=== PATIENT | male | born 1955 | race Caucasian/White ===

== ENCOUNTER 2018-02-03 21:49 | Emergency (ER) | payer BC ==
[~2018-02-03] VITALS: Ht 175.3 cm; Wt 86.2 kg
[2018-02-03 22:42] LABS: BASOPHILS % (AUTO) 0.7 % (0-1); EOSINOPHILS % (AUTO) 0.7 % (0-6); HEMATOCRIT 45.7 % (42.0-52.0); HEMOGLOBIN 15.9 g/dl (14.0-17.9); LYMPHOCYTES # (AUTO) 2.8 X10'3 (1.1-4.8); LYMPHOCYTES % (AUTO) 43.9 % (21-51); MEAN CORPUSCULAR HEMOGLOBIN 35.1 PG (27.0-31.0); MEAN CORPUSCULAR HGB CONC 34.7 % (33.0-36.5); MEAN CORPUSCULAR VOLUME 100.9 FL (78-98); MEAN PLATELET VOLUME 8.2 FL (7.4-10.4); MONOCYTES # (AUTO) 0.5 X10'3 (0-0.9); MONOCYTES % (AUTO) 8.6 % (2-12); NEUTROPHILS # (AUTO) 2.9 X10'3 (1.8-7.7); NEUTROPHILS % (AUTO) 46.1 % (42-75); PLATELET COUNT 137 X10'3 (140-440); RED BLOOD COUNT 4.53 X10'6 (4.70-6.10); RED CELL DISTRIBUTION WIDTH 14.7 % (11.5-14.5); WHITE BLOOD COUNT 6.3 X10'3 (4.5-11.0)
[2018-02-03 22:55] LABS: ALANINE AMINOTRANSFERASE 66 U/L (12-78); ALBUMIN 3.8 G/DL (3.4-5.0); ALBUMIN/GLOBULIN RATIO 1.1 (1.1-1.5); ALKALINE PHOSPHATASE 47 IU/L (46-116); ANION GAP 15 (8-16); ASPARTATE AMINO TRANSFERASE 86 U/L (10-37); BILIRUBIN,TOTAL 0.6 MG/DL (0.1-1.0); BLOOD UREA NITROGEN 16 MG/DL (7-18); BUN/CREATININE RATIO 13.8 (5.4-32.0); CALCIUM 9.3 MG/DL (8.5-10.1); CHLORIDE 105 MMOL/L (99-107); CREATININE 1.16 MG/DL (0.60-1.10); GLUCOSE 133 MG/DL (70-104); MAGNESIUM 1.9 MG/DL (1.5-2.4); POTASSIUM 3.3 MMOL/L (3.5-5.1); SODIUM 146 MMOL/L (135-145); TOTAL CARBON DIOXIDE 26.2 MMOL/L (24-32); TOTAL PROTEIN 7.2 G/DL (6.4-8.2); eGFR 64 ML/MIN
[2018-02-03 22:58] LABS: ETHANOL 0.381 GM/DL (0.0-0.010)
[2018-02-03 23:33] VITALS: BP 118/69
== END 2018-02-03 23:35 | disposition home or self-care (01) ==
LOC: ER 21:50
DX: S09.90XA Unspecified injury of head, initial encounter (principal); F10.129 Alcohol abuse with intoxication, unspecified; R42 Dizziness and giddiness; Z86.718 Personal history of other venous thrombosis and embolism; W10.9XXA Fall (on) (from) unspecified stairs and steps, initial encounter; Y93.89 Activity, other specified; Y92.89 Other specified places as the place of occurrence of the external cause; Y99.8 Other external cause status
CPT/HCPCS: 36415; 70450; 80053; 80320; 83735; 85025; 93005; 99285; J7030

== ENCOUNTER 2021-08-09 08:57 | Outpatient (CLI) | payer MEDICARE, OTHER | END 2021-08-09 23:59 | disposition home or self-care (01) | LOC: RAD 08:57 | PROVIDERS: ATTEND Psychiatry & Neurology Neurology | DX: R25.1 Tremor, unspecified (principal); G62.1 Alcoholic polyneuropathy | CPT/HCPCS: 95816 ==

== ENCOUNTER 2021-09-17 16:48 | Emergency (ER) | payer MEDICARE, OTHER ==
[~2021-09-17] VITALS: Ht 175.3 cm; Wt 90.9 kg
[2021-09-17 20:29] VITALS: BP 154/90
[2021-09-17] MEDS ORDERED: traMADol 50MG tablet PO ONE (20:40)
[2021-09-17] MEDS ORDERED: cyclobenzaprine 10mg tablet PO ONE (20:40)
[2021-09-17] MEDS ORDERED: HYDROcodone/acetaminophen 5mg/325mg tablet PO ONE (20:40)
[2021-09-17] MEDS ORDERED: TRAM50TA2 PO (20:43)
[2021-09-17] MEDS ORDERED: CYCL-1 PO (20:43)
[2021-09-18] MEDS ORDERED: TRAM50TA2 PO (13:26)
[2021-09-18] MEDS ORDERED: CYCL-394 PO (13:26)
== END 2021-09-17 20:54 | disposition home or self-care (01) ==
LOC: ER 16:51
DX: S20.211A Contusion of right front wall of thorax, initial encounter (principal); F17.200 Nicotine dependence, unspecified, uncomplicated; Z86.718 Personal history of other venous thrombosis and embolism; Z72.89 Other problems related to lifestyle; W22.8XXA Striking against or struck by other objects, initial encounter; Y93.61 Activity, american tackle football; Y92.89 Other specified places as the place of occurrence of the external cause; Y99.8 Other external cause status
CPT/HCPCS: 71101; 99284

== ENCOUNTER 2023-03-10 20:49 | Emergency (ER) | payer OTHER ==
[~2023-03-10] VITALS: Ht 175.3 cm; Wt 79.5 kg
[~2023-03-10 20:49] MED LIST: GABA-530 PO; LORA-269 PO; ONDA4TAB12 PO
[2023-03-10 20:55] VITALS: BP 126/76
== END 2023-03-10 23:44 | disposition left against medical advice (07) ==
LOC: ER 20:50
DX: F10.129 Alcohol abuse with intoxication, unspecified (principal); Y90.9 Presence of alcohol in blood, level not specified
CPT/HCPCS: 99281

== ENCOUNTER 2023-07-15 20:18 | Emergency (ER) | payer OTHER ==
[~2023-07-15] VITALS: Ht 177.8 cm; Wt 81.8 kg
[~2023-07-15 20:18] MED LIST changes: +NAPR-56 PO; +POTA-207 PO
[2023-07-15 20:23] VITALS: BP 144/71; PULSE 71; RESP 20; TEMP 98.9; O2SAT 97
--- NOTE | 2023-07-15 22:08 | NUR ---
PT LEFT/ ELOPPED. PT WAS VERBALY AGRESSIVE WITH STAFF ABOUT MD TAKING SO LONG. PT EDUCATION GIVEN ON ER TIMES. NURSE WAS TOLD "FUCK YOU" AND LEFT. PT SEEN LEAVING THE ER
== END 2023-07-15 22:11 | disposition left against medical advice (07) ==
LOC: ER 20:18
DX: M54.9 Dorsalgia, unspecified (principal); Z53.21 Procedure and treatment not carried out due to patient leaving prior to being seen by health care provider
CPT/HCPCS: 99281

== ENCOUNTER 2023-07-18 17:01 | Emergency (ER) | payer OTHER ==
[~2023-07-18] VITALS: Ht 175.3 cm; Wt 81.8 kg
[2023-07-18 17:40] VITALS: BP 131/72; PULSE 70; TEMP 97.6; O2SAT 100
[2023-07-18] MEDS ORDERED: traMADol 50MG tablet PO ONE (19:45)
[2023-07-18] MEDS ORDERED: acetaminophen 325mg tablet PO ONE (19:45)
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
[2023-07-18 20:20] VITALS: RESP 17
[2023-07-18 21:03] LABS: ALBUMIN 3.5 G/DL (3.4-5.0); ANION GAP 8 (8-16); BLOOD UREA NITROGEN 18 MG/DL (7-18); BUN/CREATININE RATIO 14.5 (10.0-20.0); CALCIUM 9.6 MG/DL (8.5-10.1); CHLORIDE 108 MMOL/L (99-107); CREATININE 1.24 MG/DL (0.60-1.10); GLUCOSE 93 MG/DL (70-104); POTASSIUM 3.6 MMOL/L (3.5-5.1); SODIUM 141 MMOL/L (135-145); eCRCL 58 ML/MIN; eGFR 58 ML/MIN
[2023-07-18] MEDS ORDERED: DICL20GE TOP (21:08)
--- NOTE | 2023-07-18 21:09 | NUR ---
PT REQUESTING CAB TO [facility] [place]. [facility] CALLED, EST TIME OF ARRIVAL 5 MINUTES.
--- NOTE | 2023-07-18 21:42 | NUR ---
JUNIOR pierce reviewed by RN, approved by this RN
== END 2023-07-18 21:48 | disposition home or self-care (01) ==
LOC: ER 17:02
DX: F10.10 Alcohol abuse, uncomplicated (principal); F31.9 Bipolar disorder, unspecified; M25.511 Pain in right shoulder; Z79.899 Other long term (current) drug therapy; Y90.9 Presence of alcohol in blood, level not specified
CPT/HCPCS: 36415; 80048; 99283

== ENCOUNTER 2023-07-19 21:33 | Emergency (ER) | payer OTHER ==
[~2023-07-19] VITALS: Ht 175.3 cm; Wt 79.8 kg
[~2023-07-19 21:33] MED LIST changes: +DICL20GE TOP
[2023-07-19 23:47] VITALS: BP 124/70; PULSE 78; RESP 14; TEMP 98.8; O2SAT 98
[2023-07-20] MEDS ORDERED: ibuprofen tablet 400 MG TABLET PO ONE (01:40)
== END 2023-07-20 01:45 | disposition home or self-care (01) ==
LOC: ER 21:33
DX: M54.9 Dorsalgia, unspecified (principal); G89.29 Other chronic pain; Z72.89 Other problems related to lifestyle; Z56.0 Unemployment, unspecified; Z59.00 Homelessness unspecified; Z79.899 Other long term (current) drug therapy
CPT/HCPCS: 99284

== ENCOUNTER 2023-07-27 19:44 | Emergency (ER) | payer OTHER ==
[~2023-07-27] VITALS: Ht 175.3 cm; Wt 41.4 kg
[~2023-07-27 19:44] MED LIST changes: -POTA-207 PO
[2023-07-27 21:05] LABS: BASOPHILS # (AUTO) 0.2 X10'3 (0-0.2); BASOPHILS % (AUTO) 1.9 % (0-1); EOSINOPHILS # (AUTO) 0.3 X10'3 (0-0.9); EOSINOPHILS % (AUTO) 3.2 % (0-6); HEMATOCRIT 46.7 % (42.0-52.0); HEMOGLOBIN 15.7 g/dl (14.0-17.9); LYMPHOCYTES # (AUTO) 3.8 X10'3 (1.1-4.8); LYMPHOCYTES % (AUTO) 37.7 % (21-51); MEAN CORPUSCULAR HGB CONC 33.7 g/dL (33.0-36.5); MEAN CORPUSCULAR VOLUME 94.9 FL (78-98); MEAN PLATELET VOLUME 8.5 FL (7.4-10.4); MONOCYTES # (AUTO) 0.6 X10'3 (0-0.9); MONOCYTES % (AUTO) 6.2 % (2-12); NEUTROPHILS # (AUTO) 5.2 X10'3 (1.8-7.7); PLATELET COUNT 296 X10'3 (140-440); RED BLOOD COUNT 4.92 X10'6 (4.70-6.10); RED CELL DISTRIBUTION WIDTH 15.9 % (11.5-14.5); WHITE BLOOD COUNT 10.2 X10'3 (4.5-11.0)
[2023-07-27 21:14] LABS: ALANINE AMINOTRANSFERASE 24 U/L (12-78); ALBUMIN 3.4 G/DL (3.4-5.0); ALBUMIN/GLOBULIN RATIO 0.9 (1.1-1.5); ALKALINE PHOSPHATASE 116 IU/L (46-116); ANION GAP 10 (8-16); ASPARTATE AMINO TRANSFERASE 26 U/L (10-37); BILIRUBIN,TOTAL 0.7 MG/DL (0.1-1.0); BLOOD UREA NITROGEN 6 MG/DL (7-18); BUN/CREATININE RATIO 5.1 (10.0-20.0); CALCIUM 9.2 MG/DL (8.5-10.1); CHLORIDE 106 MMOL/L (99-107); CREATININE 1.18 MG/DL (0.60-1.10); GLUCOSE 90 MG/DL (70-104); LIPASE 32 U/L (16-77); MAGNESIUM 1.8 MG/DL (1.5-2.4); POTASSIUM 3.2 MMOL/L (3.5-5.1); SODIUM 143 MMOL/L (135-145); TOTAL CARBON DIOXIDE 26.6 MMOL/L (24-32); TOTAL PROTEIN 7.2 G/DL (6.4-8.2); eCRCL 36 ML/MIN; eGFR 62 ML/MIN
[2023-07-27 21:19] LABS: BILIRUBIN,URINE SMALL (Neg); CLARITY,URINE CLEAR (Clear); COLOR,URINE AMBER (Yellow); GLUCOSE, URINE NEGATIVE (Neg); KETONES,URINE TRACE mg/dl (Neg); LEUKOCYTE ESTERASE ,URINE NEGATIVE (Neg); NITRITES, URINE NEGATIVE (Neg); OCCULT BLOOD,URINE TRACE-INTACT (Neg); PH,URINE 5.5 (4.8-8.0); PROTEIN,URINE NEGATIVE (Neg); UROBILINOGEN,URINE 0.2 E.U/dL (0.2-1.0)
[2023-07-27 21:20] LABS: UA COLLECTION TYPE CLN CATCH MIDSTREAM
[2023-07-27 21:37] LABS: MUCUS STRANDS MANY /LPF (Neg); SQUAMOUS EPITHELIAL CELL,UR FEW /LPF (FEW)
[2023-07-27 21:38] LABS: BACTERIA,URINE NONE SEEN /HPF (Neg); RBC,URINE 0-2 /HPF (0-2); WBC,URINE 0-4 /HPF (0-4)
[2023-07-28 07:22] VITALS: TEMP 97
[2023-07-28] MEDS ORDERED: LORazepam 1 MG tablet PO ONE (10:15)
[2023-07-28 10:33] VITALS: BP 134/80; PULSE 64; RESP 18; O2SAT 98
[2023-07-29] MEDS ORDERED: ARIP20TA21 PO (16:24)
[2023-07-29] MEDS ORDERED: QUET50TA24 PO (16:24)
[2023-07-29] MEDS ORDERED: GABA-530 PO (16:26)
[2023-07-29] MEDS ORDERED: AMPH10TA2 PO (16:32)
== END 2023-07-28 10:34 | disposition home or self-care (01) ==
LOC: ER 19:45
DX: F10.239 Alcohol dependence with withdrawal, unspecified (principal); M54.59 Other low back pain; G89.29 Other chronic pain; Z59.00 Homelessness unspecified; Z56.0 Unemployment, unspecified; Y90.9 Presence of alcohol in blood, level not specified
CPT/HCPCS: 36415; 80053; 80320; 81001; 83690; 83735; 85025; 93005; 99284

== ENCOUNTER 2023-07-28 20:39 | Inpatient (IN) | payer OTHER ==
[~2023-07-28] VITALS: Ht 175.3 cm; Wt 93.1 kg
[2023-07-28 21:16] LABS: BILIRUBIN,URINE MODERATE (Neg); GLUCOSE, URINE NEGATIVE (Neg); KETONES,URINE TRACE mg/dl (Neg); LEUKOCYTE ESTERASE ,URINE NEGATIVE (Neg); NITRITES, URINE NEGATIVE (Neg); OCCULT BLOOD,URINE NEGATIVE (Neg); PROTEIN,URINE NEGATIVE (Neg)
[2023-07-28 21:22] LABS: CLARITY,URINE SLIGHTLY CLOUDY (Clear); COLOR,URINE DARK YELLOW (Yellow); UA COLLECTION TYPE CLN CATCH MIDSTREAM
[2023-07-28 21:24] LABS: BACTERIA,URINE NONE SEEN /HPF (Neg); RBC,URINE 0-2 /HPF (0-2); SQUAMOUS EPITHELIAL CELL,UR FEW /LPF (FEW)
[2023-07-28 21:25] LABS: MUCUS STRANDS FEW /LPF (Neg)
[2023-07-28 21:45] LABS: EOSINOPHILS # (AUTO) 0.3 X10'3 (0-0.9); MEAN PLATELET VOLUME 8.8 FL (7.4-10.4); WHITE BLOOD COUNT 10.2 X10'3 (4.5-11.0)
[2023-07-28 21:47] LABS: BASOPHILS # (AUTO) 0.1 X10'3 (0-0.2); BASOPHILS % (AUTO) 0.6 % (0-1); HEMATOCRIT 47.7 % (42.0-52.0); HEMOGLOBIN 15.9 g/dl (14.0-17.9); LYMPHOCYTES # (AUTO) 3.2 X10'3 (1.1-4.8); LYMPHOCYTES % (AUTO) 31.2 % (21-51); MEAN CORPUSCULAR HEMOGLOBIN 31.9 PG (27.0-31.0); MEAN CORPUSCULAR HGB CONC 33.4 g/dL (33.0-36.5); MEAN CORPUSCULAR VOLUME 95.4 FL (78-98); MONOCYTES # (AUTO) 0.9 X10'3 (0-0.9); MONOCYTES % (AUTO) 8.5 % (2-12); NEUTROPHILS # (AUTO) 5.8 X10'3 (1.8-7.7); NEUTROPHILS % (AUTO) 56.7 % (42-75); PLATELET COUNT 275 X10'3 (140-440); RED BLOOD COUNT 5.01 X10'6 (4.70-6.10); RED CELL DISTRIBUTION WIDTH 15.7 % (11.5-14.5)
[2023-07-28 21:48] LABS: URINE AMPHETAMINE SCREEN NEGATIVE (Neg); URINE BARBITUATE SCREEN NEGATIVE (Neg); URINE BENZODIAZEPINES SCREEN POSITIVE (Neg); URINE CANNABINOID SCREEN NEGATIVE (Neg); URINE COCAINE SCREEN NEGATIVE (Neg); URINE METHADONE SCREEN NEGATIVE (Neg); URINE OPIATE SCREEN NEGATIVE (Neg); URINE PHENCYCLIDINE SCREEN NEGATIVE (Neg)
[2023-07-28 21:53] LABS: ALANINE AMINOTRANSFERASE 26 U/L (12-78); ALBUMIN 3.3 G/DL (3.4-5.0); ALBUMIN/GLOBULIN RATIO 0.9 (1.1-1.5); ALKALINE PHOSPHATASE 119 IU/L (46-116); ANION GAP 9 (8-16); ASPARTATE AMINO TRANSFERASE 26 U/L (10-37); BILIRUBIN,TOTAL 0.8 MG/DL (0.1-1.0); BLOOD UREA NITROGEN 11 MG/DL (7-18); BUN/CREATININE RATIO 10.2 (10.0-20.0); CALCIUM 9.4 MG/DL (8.5-10.1); CHLORIDE 103 MMOL/L (99-107); CREATININE 1.08 MG/DL (0.60-1.10); GLUCOSE 101 MG/DL (70-104); POTASSIUM 3.4 MMOL/L (3.5-5.1); SODIUM 139 MMOL/L (135-145); TOTAL CARBON DIOXIDE 26.7 MMOL/L (24-32); TOTAL PROTEIN 7.1 G/DL (6.4-8.2); eCRCL 66 ML/MIN; eGFR 68 ML/MIN
[2023-07-28 22:01] LABS: ETHANOL 12 MG/DL (<10); THYROID STIMULATING HORMONE 3.64 ulU/ml (0.34-4.50)
[2023-07-29] MEDS ORDERED: ibuprofen tablet 400 MG TABLET PO ONE (03:05)
[2023-07-29] MEDS ORDERED: potassium Cl 20 mEq SR tablet PO STA (03:27)
--- NOTE | 2023-07-29 08:30 | NUR ---
Received patient from the main ED. Arrived pleasant, calm and cooperative. Eating breakfast at this time. Addendum: 07/29/23 at 0832 by IMTIAZ Placed in bed-21
--- NOTE | 2023-07-29 09:32 | NUR ---
Patient snoring. Rise and fall of chest noted. No s/sx of acute distress. Will continue to monitor.
--- NOTE | 2023-07-29 11:30 | NUR ---
Patient wakes up and asks for his clothing. "I want to leave." Made him aware that Arcadio will be around to evaluate him soon. Redirection was successful. Patient went back to lay down. Currently sleeping. No s/sx of acute distress noted. Will continue to monitor.
[2023-07-29] MEDS ORDERED: ibuprofen 200mg tablet PO SCH (15:50)
[2023-07-29] MEDS ORDERED: LORazepam 1 MG tablet PO SCH (15:50)
[2023-07-29] MEDS: nicotine 21mg patch - 24 hr TD SCH (16:12)
[2023-07-29] MEDS ORDERED: ARIP20TA21 PO (16:24)
[2023-07-29] MEDS ORDERED: QUET50TA24 PO (16:24)
[2023-07-29] MEDS ORDERED: GABA-530 PO (16:26)
[2023-07-29] MEDS ORDERED: AMPH10TA2 PO (16:32)
--- NOTE | 2023-07-29 17:19 | NUR ---
Patient resting well with eyes closed. Reports pain is better after medication administration. Appears to be sleeping. Will continue to monitor.
--- NOTE | 2023-07-29 19:09 | NUR ---
The patient appears to be sleeping after eating 100% of his dinner. Respiratons even and unlabored. Will continue plan of care.
[2023-07-29] MEDS ORDERED: dextroamphetamine/amphetamine 5mg tablet PO SCH (20:00)
[2023-07-29] MEDS: LORazepam 1 MG tablet PO PRN (20:45)
[2023-07-29] MEDS: QUEtiapine 25mg tablet PO SCH (20:45)
[2023-07-29] MEDS: gabapentin 100mg capsule PO SCH (20:45)
--- NOTE | 2023-07-29 20:49 | NUR ---
The patient refused 2000 Adderall and stated he takes it in the AM and around 1pm. Pharmacy made and aware and times adjusted. The patient is irritable and continues to indorse suicidal thoughts.
--- NOTE | 2023-07-29 23:18 | NUR ---
The patient appears to be sleeping. Respirations even and unlabored. Continuing plan of care
[2023-07-30] MEDS ORDERED: gabapentin 100mg capsule PO SCH
--- NOTE | 2023-07-30 01:03 | NUR ---
The patient appears to be sleeping. Respirations even and unlabored. Continuing plan of care.
[2023-07-30] MEDS: ibuprofen 200mg tablet PO PRN ×3 (01:40→19:52)
--- NOTE | 2023-07-30 02:42 | NUR ---
The patient appears to be sleeping. Respirations even and unlabored. Up to use the bathroom and requested/received snack and motrin for chronic shoulder pain
--- NOTE | 2023-07-30 05:31 | NUR ---
The patient appears to be sleeping
--- NOTE | 2023-07-30 06:42 | NUR ---
Patient sleeping supine with light snoring respirations. No distress observed. Continue to monitor.
[2023-07-30] MEDS ORDERED: nicotine 21mg patch - 24 hr TD ONE (08:00)
--- NOTE | 2023-07-30 08:25 | NUR ---
Patient awake and eating breakfast. No distress observed. Continue to monitor.
[2023-07-30] MEDS: gabapentin 100mg capsule PO SCH ×3 (08:26→19:52)
[2023-07-30] MEDS: ARIPIPRAZOLE 10 MG TABLET PO SCH (08:26)
[2023-07-30] MEDS: dextroamphetamine/amphetamine 5mg tablet PO SCH ×2 (08:26→13:35)
[2023-07-30] MEDS: nicotine 21mg patch - 24 hr TD SCH (08:27)
--- NOTE | 2023-07-30 09:27 | NUR ---
Patient asked RN for his cell phone so he can listen to his messages. RN advised patient that he won't have access to his cell phone until he is discharged. Patient got angry and stated "That doesn't make sense and I want to speak with your boss!" RN called the charge nurse who stated she would come talk to him but was busy at the moment. Continue to monitor.
--- NOTE | 2023-07-30 10:37 | NUR ---
Charge Nurse, Merary, came to see patient but he was asleep. Merary will come back when he is awake. No distress observed. Continue to monitor.
--- NOTE | 2023-07-30 12:11 | NUR ---
Patient eating lunch. No distress observed. Continue to monitor.
--- NOTE | 2023-07-30 13:40 | NUR ---
Patient using phone non-stop. Continue to monitor.
[2023-07-30 14:40] VITALS: BP 157/98; PULSE 76; RESP 16; TEMP 98.2; O2SAT 99
[2023-07-30 15:45] VITALS: RESP 16; O2SAT 99
[2023-07-30] MEDS ORDERED: mag hydrox/Alum hydrox/simeth 30ml oral suspension PO PRN (16:25)
[2023-07-30] MEDS ORDERED: acetaminophen 325mg tablet PO PRN (16:25)
[2023-07-30] MEDS ORDERED: magnesium hydroxide 30ml (MOM) UD suspension PO PRN (16:25)
[2023-07-30] MEDS ORDERED: loperamide 2mg capsule PO PRN (16:25)
--- NOTE | 2023-07-30 16:32 | NUR ---
ADMIT NOTE: Pt transferred from ER overflow to [facility] room 331B. Pt arrived on the unit at 1140 via w/c accompanied by [employer] and security. Pt is on a 5150 for DTS. Pt was having suicidal ideation with a plan to jump in front of a car. Pt reports he did in fact jump in front of a car but it stopped. Pt reports a previous suicide attempt 6 years ago where he cut his wrists. Pt is a chronic alcoholic. Pt has a history of withdrawal seizures. Pt reports that he was in the [facility] for 2 months but he came here for a mental health eval and then began drinking again and did not return. Pt reports he has been drinking again for around 1 & 1/2 weeks. He was drinking a 5th of whiskey daily. Pt's last drink was 07/28/23. His BAL was 12. Pt has a Hx of Bipolar Disorder, pt reports he has Parkinson's though has no tremor, pt has a Hx of DVTs, chronic back pain, and alcoholic polyneuropathy.
[2023-07-30] MEDS: LORazepam 1 MG tablet PO PRN ×2 (16:41→19:54)
[2023-07-30] MEDS: acetaminophen 325mg tablet PO PRN (16:42)
[2023-07-30 19:30] VITALS: BP 131/77; PULSE 70; RESP 18; TEMP 98.3; O2SAT 97
[2023-07-30] MEDS: QUEtiapine 25mg tablet PO SCH (19:53)
[2023-07-30] MEDS: NICOTINE POLACRILEX 2 MG LOZENGE BC PRN (20:42)
--- NOTE | 2023-07-31 05:09 | NUR ---
Nursing Progress Note: Jerome Problem: Pt transferred from ER overflow to [facility] room 331B. Pt arrived on the unit at 1140 via w/c accompanied by [employer] and [employer]. Pt is on a 5150 for DTS. Pt was having suicidal ideation with a plan to jump in front of a car. Pt reports he did in fact jump in front of a car but it stopped. Pt reports a previous suicide attempt 6 years ago where he cut his wrists. Pt is a chronic alcoholic. Pt has a history of withdrawal seizures. Pt reports that he was in the [facility] for 2 months but he came here for a mental health eval and then began drinking again and did not return. Pt reports he has been drinking again for around 1 & 1/2 weeks. He was drinking a 5th of whiskey daily. Pt's last drink was 07/28/23. His BAL was 12. Pt has a Hx of Bipolar Disorder, pt reports he has Parkinson's though has no tremor, pt has a Hx of DVTs, chronic back pain, and alcoholic polyneuropathy. Interventions: Build positive rapport, maintained a safe and supportive environment, provided clear and simple instructions, encouraged compliance with medication and provided education, and maintained Q 15min safety checks. Response: Pt was out of his room at beginning of shift and requesting that he have his phone so he could get some phone number off of it. Pt was allowed access to his phone strictly to retrieve numbers off of it with the supervision of staff. Pt was requesting his pants and became agitated when staff was trying to locate them. D/t his agitation his night meds were administered early and he was given Ativan as well as Motrin for his bilateral shoulder pain. On assessment pt denies AVH/HI but endorses SI. His plan is to jump in front of a car and states he has done it twice in the last 2 days. Pt states my life seems hopeless. Pt confides that he has lost over 1500 in the past 2 weeks on buying gift cards for people he has met through dating apps that never ended up meeting up with him. He expresses his despair of not having a place to live and understands he has a drinking problem and wants to go into a 30 or 60 day rehab. Pt not exhibiting withdrawal symptoms yet besides a little agitation when he was worried about getting numbers off his phone or trying to get his pants back. Upon RN coming in to do a set of vitals on him in the middle of the night for the CIWA, he states I thought a pretty woman was getting in my bed and stated that would be nice. Pt requested snacks a few times throughout the night, but had no complaints. Plan: Pt. requires medication adjustment and as safe environment.
[2023-07-31 07:13] VITALS: RESP 16; O2SAT 99
[2023-07-31] MEDS: nicotine 21mg patch - 24 hr TD SCH (07:16)
[2023-07-31] MEDS: ARIPIPRAZOLE 10 MG TABLET PO SCH (07:46)
[2023-07-31] MEDS: dextroamphetamine/amphetamine 5mg tablet PO SCH ×2 (07:46→13:26)
[2023-07-31] MEDS: gabapentin 100mg capsule PO SCH ×3 (07:46→21:08)
[2023-07-31] MEDS: NICOTINE POLACRILEX 2 MG LOZENGE BC PRN ×2 (07:49→17:11)
[2023-07-31 08:00] VITALS: BP 150/84; PULSE 68; RESP 16; TEMP 97.5; O2SAT 100
[2023-07-31] MEDS: ibuprofen 200mg tablet PO PRN (08:03)
[2023-07-31] MEDS ORDERED: aripiprazole 5mg tablet PO ONE (12:30)
[2023-07-31] MEDS: naproxen 500mg tablet PO SCH ×2 (13:29→17:53)
--- NOTE | 2023-07-31 14:04 | NUR ---
Requested [facility] counseling case manager to meet with Jerome to complete [employer] application. They can meet with him tomorrow. TSEVEN Hwang
[2023-07-31 15:27] LABS: CHOL/HDL RATIO 3.8 (0.00-4.99); CHOLESTEROL 180 MG/DL (0-200); HDL CHOLESTEROL 47 MG/DL (35-60); LDL CHOLESTEROL 102 MG/DL (50-100); POTASSIUM 4.1 MMOL/L (3.5-5.1); TRIGLYCERIDES 175 MG/DL (20-135)
[2023-07-31 15:32] LABS: HEMOGLOBIN A1C 5.4 % (4.5-6.2)
--- NOTE | 2023-07-31 17:41 | NUR ---
Nursing Progress Note: Problem: Pt transferred from ER overflow to [facility] room 331B. Pt arrived on the unit at 1140 via w/c accompanied by [employer] and [employer]. Pt is on a 5150 for DTS. Pt was having suicidal ideation with a plan to jump in front of a car. Pt reports he did in fact jump in front of a car but it stopped. Pt reports a previous suicide attempt 6 years ago where he cut his wrists. Pt is a chronic alcoholic. Pt has a history of withdrawal seizures. Pt reports that he was in the [facility] for 2 months but he came here for a mental health eval and then began drinking again and did not return. Pt reports he has been drinking again for around 1 & 1/2 weeks. He was drinking a 5th of whiskey daily. Pt's last drink was 07/28/23. His BAL was 12. Pt has a Hx of Bipolar Disorder, pt reports he has Parkinson's though has no tremor, pt has a Hx of DVTs, chronic back pain, and alcoholic polyneuropathy. Interventions: Build positive rapport, maintained a safe and supportive environment, provided clear and simple instructions, encouraged compliance with medication and provided education, and maintained Q 15min safety checks. Response: Patient was awake and out of his room at shift change. He asks for a nicotine patch and lozenge right away. They were administered along with his other medications, then he went to the community room and ate breakfast. 1:1 at bedside after breakfast. Patient reports that life has been difficult for him lately. Patient reports that hes been drinking too much, especially as hes homeless and unemployed. I drink because Im miserable, and the more I drink the more miserable I am. He has scored 1 on CIWA today. Patient continues to endorse SI today. He has shown no signs of agitation today. Maybe a little irritation at having his cell phone taken, but nothing requiring a PRN. ALL other MH symptoms are denied. Plan: Pt. requires medication adjustment and as safe environment.
[2023-07-31 19:00] VITALS: BP 170/91; PULSE 69; RESP 18; TEMP 97.1; O2SAT 99
[2023-07-31] MEDS: DICLOFENAC SODIUM 1% gel 1 APPLIC APPLIC TP SCH (20:00)
[2023-07-31] MEDS: LORazepam 1 MG tablet PO PRN (21:08)
[2023-07-31] MEDS: QUEtiapine 25mg tablet PO SCH (21:08)
[2023-07-31] MEDS: acetaminophen 325mg tablet PO PRN (21:10)
[2023-08-01] MEDS: acetaminophen 325mg tablet PO PRN ×2 (02:46→19:20)
--- NOTE | 2023-08-01 05:57 | NUR ---
Nursing Progress Note: Jerome Problem: Pt transferred from ER overflow to [facility] room 331B. Pt arrived on the unit at 1140 via w/c accompanied by [id number] and [employer]. Pt is on a 5150 for DTS. Pt was having suicidal ideation with a plan to jump in front of a car. Pt reports he did in fact jump in front of a car but it stopped. Pt reports a previous suicide attempt 6 years ago where he cut his wrists. Pt is a chronic alcoholic. Pt has a history of withdrawal seizures. Pt reports that he was in the [facility] for 2 months but he came here for a mental health eval and then began drinking again and did not return. Pt reports he has been drinking again for around 1 & 1/2 weeks. He was drinking a 5th of whiskey daily. Pt's last drink was 07/28/23. His BAL was 12. Pt has a Hx of Bipolar Disorder, pt reports he has Parkinson's though has no tremor, pt has a Hx of DVTs, chronic back pain, and alcoholic polyneuropathy. Interventions: Build positive rapport, maintained a safe and supportive environment, provided clear and simple instructions, encouraged compliance with medication and provided education, and maintained Q 15min safety checks. Response: Pt was out of his room at beginning of shift eating dinner in the dayroom. On assessment pt denies AVH/SI/HI and states that he feels alright, depressed, but that he is not having SI not in here, but I would if I was outside. Pt was compliant with all medications and received his PRN Ativan tonight which seemed to be effective as he was able to relax and fall asleep easily. Pts CIWA scores continue to be low. Pt asks for snacks frequently, such as 10 minutes after snack time, and upon every time his Q4 vitals are taken for his CIWA. Pt received PRN Tylenol for his bilateral shoulder pain. Plan: Pt. requires medication adjustment and as safe environment.
[2023-08-01 07:02] VITALS: RESP 16; O2SAT 99
[2023-08-01] MEDS: nicotine 21mg patch - 24 hr TD SCH (07:06)
[2023-08-01] MEDS: gabapentin 100mg capsule PO SCH ×3 (07:07→21:05)
[2023-08-01] MEDS: dextroamphetamine/amphetamine 5mg tablet PO SCH ×2 (07:07→12:53)
[2023-08-01] MEDS: ARIPIPRAZOLE 10 MG TABLET PO SCH (07:07)
[2023-08-01] MEDS: NICOTINE POLACRILEX 2 MG LOZENGE BC PRN ×2 (07:08→21:20)
[2023-08-01] MEDS: LORazepam 1 MG tablet PO PRN ×2 (07:25→14:57)
[2023-08-01] MEDS: naproxen 500mg tablet PO SCH ×2 (07:34→17:51)
[2023-08-01 07:48] VITALS: BP 116/72; PULSE 68; RESP 16; TEMP 96.9; O2SAT 98
[2023-08-01] MEDS: DICLOFENAC SODIUM 1% gel 1 APPLIC APPLIC TP SCH ×2 (08:39→20:00)
--- NOTE | 2023-08-01 15:03 | NUR ---
Jerome is a 67 y/o male who was placed on 5150 for danger to self. He reported he attempted suicide by jumping in front of a car and the car reportedly stopped. He reported he was he had been feeling hopeless due to life stressors of homelessness and alcohol dependence. Jerome reported he is homeless due to alcohol dependence. He reported he was kicked out of his sister's house, the [employer] and [employer] all due to alcohol abuse. This is Jermoe's first psychiatric hospitalization at age 67. 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 He stated, "we don't have anything to talk about then, I want to leave". STEVEN Hwang Addendum: 08/01/23 at 1503 by Macey Bagley Amended: Links added.
--- NOTE | 2023-08-01 17:43 | NUR ---
Nursing Progress Note: Problem: Pt transferred from ER overflow to [facility] room 331B. Pt arrived on the unit at 1140 via w/c accompanied by [employer] and security. Pt is on a 5150 for DTS. Pt was having suicidal ideation with a plan to jump in front of a car. Pt reports he did in fact jump in front of a car but it stopped. Pt reports a previous suicide attempt 6 years ago where he cut his wrists. Pt is a chronic alcoholic. Pt has a history of withdrawal seizures. Pt reports that he was in the [facility] for 2 months but he came here for a mental health eval and then began drinking again and did not return. Pt reports he has been drinking again for around 1 & 1/2 weeks. He was drinking a 5th of whiskey daily. Pt's last drink was 07/28/23. His BAL was 12. Pt has a Hx of Bipolar Disorder, pt reports he has Parkinson's though has no tremor, pt has a Hx of DVTs, chronic back pain, and alcoholic polyneuropathy. Interventions: Build positive rapport, maintained a safe and supportive environment, provided clear and simple instructions, encouraged compliance with medication and provided education, and maintained Q 15min safety checks. Response: Patient woke on his own and was provided a cup of coffee per his request. He went and ate breakfast with his peers. Patient is compliant with all medications. Im feeling lots better, but I still occasionally have thoughts of walking in front of a car. You guys have been really good for me though. He reports that Naprosyn has helped with his shoulder pain. Hes really hoping that a spot will open at [facility] soon. Patient says he feels like he can really commit to being clean this time. Hes having difficulty getting his family to believe in him again, but he was reminded that it will take time, and in the end his actions will speak louder that his words. Plan: Pt. requires medication adjustment and as safe environment.
[2023-08-01 19:00] VITALS: BP 140/89; PULSE 76; RESP 16; TEMP 97.3; O2SAT 98
[2023-08-01] MEDS: divalproex sod 250mg ER (24-hour) tablet PO SCH (21:05)
[2023-08-01] MEDS: QUEtiapine 25mg tablet PO SCH (21:06)
[2023-08-01] MEDS: traMADol 50MG tablet PO PRN (23:54)
--- NOTE | 2023-08-02 02:25 | NUR ---
Nursing Progress Note: Jerome Problem: Pt transferred from ER overflow to [facility] room 331B. Pt arrived on the unit at 1140 via w/c accompanied by [employer] and [employer]. Pt is on a 5150 for DTS. Pt was having suicidal ideation with a plan to jump in front of a car. Pt reports he did in fact jump in front of a car but it stopped. Pt reports a previous suicide attempt 6 years ago where he cut his wrists. Pt is a chronic alcoholic. Pt has a history of withdrawal seizures. Pt reports that he was in the [facility] for 2 months but he came here for a mental health eval and then began drinking again and did not return. Pt reports he has been drinking again for around 1 & 1/2 weeks. He was drinking a 5th of whiskey daily. Pt's last drink was 07/28/23. His BAL was 12. Pt has a Hx of Bipolar Disorder, pt reports he has Parkinson's though has no tremor, pt has a Hx of DVTs, chronic back pain, and alcoholic polyneuropathy. Interventions: Build positive rapport, maintained a safe and supportive environment, provided clear and simple instructions, encouraged compliance with medication and provided education, and maintained Q 15min safety checks. Response: Pt. sitting in the community room watching TV at change of shift. Pt. later observed lying in bed. Pt. has been pleasant and cooperative . He denies SI/HI/AH/VH. Pt. returned to the community room for evening snack and a movie. Pt. socializing with peers. Pt. is medication compliant. PRN tylenol provided for 7/10 bilateral shoulder pain. Pt. awaken in the night d/t pain. New order for tramadol 50mg PRN approved. Pt. provided w/ tramadol. Observed and appears sleeping without difficulty. Plan: Pt. requires medication adjustment and as safe environment.
[2023-08-02] MEDS: acetaminophen 325mg tablet PO PRN (04:40)
[2023-08-02] MEDS: nicotine 21mg patch - 24 hr TD SCH (07:00)
[2023-08-02] MEDS: dextroamphetamine/amphetamine 5mg tablet PO SCH ×2 (07:04→13:28)
[2023-08-02] MEDS: ARIPIPRAZOLE 10 MG TABLET PO SCH (07:04)
[2023-08-02] MEDS: DICLOFENAC SODIUM 1% gel 1 APPLIC APPLIC TP SCH ×2 (07:05→20:51)
[2023-08-02 07:13] VITALS: BP 119/73; PULSE 57; RESP 18; TEMP 97.3; O2SAT 96
[2023-08-02 07:29] VITALS: RESP 16; O2SAT 99
[2023-08-02] MEDS: gabapentin 100mg capsule PO SCH ×3 (08:18→20:52)
[2023-08-02] MEDS: naproxen 500mg tablet PO SCH ×2 (08:53→17:02)
[2023-08-02] MEDS: NICOTINE POLACRILEX 2 MG LOZENGE BC PRN ×2 (09:47→17:03)
--- NOTE | 2023-08-02 11:55 | NUR ---
Initial: Pt admit for SI. Currently on a regular diet and eating well, documented with average 94% PO intake of meals since admit meeting estimated nutrient needs. LBM 08/01 per EMR. No nutrition intervention warranted at this time. Will continue to follow and make recommendations as appropriate. Recommendations: 1) Continue regular diet 2) Bowel care PRN 3) Weekly scaled weights Addendum: 08/02/23 at [address] Amended: Links added.
[2023-08-02] MEDS ORDERED: pseudoephedrine 30mg tablet PO PRN (13:10)
[2023-08-02] MEDS: traMADol 50MG tablet PO PRN (17:03)
--- NOTE | 2023-08-02 17:19 | NUR ---
Nursing Progress Note: Problem: Pt transferred from ER overflow to [facility] room 331B. Pt arrived on the unit at 1140 via w/c accompanied by [employer] and [employer]. Pt is on a 5150 for DTS. Pt was having suicidal ideation with a plan to jump in front of a car. Pt reports he did in fact jump in front of a car but it stopped. Pt reports a previous suicide attempt 6 years ago where he cut his wrists. Pt is a chronic alcoholic. Pt has a history of withdrawal seizures. Pt reports that he was in the [facility] for 2 months but he came here for a mental health eval and then began drinking again and did not return. Pt reports he has been drinking again for around 1 & 1/2 weeks. He was drinking a 5th of whiskey daily. Pt's last drink was 07/28/23. His BAL was 12. Pt has a Hx of Bipolar Disorder, pt reports he has Parkinson's though has no tremor, pt has a Hx of DVTs, chronic back pain, and alcoholic polyneuropathy. Interventions: Build positive rapport, maintained a safe and supportive environment, provided clear and simple instructions, encouraged compliance with medication and provided education, and maintained Q 15min safety checks. Response: Patient was awake at shift change, but lying in bed waiting for coffee to become available. Once provided, he rises for breakfast and AM medications. After breakfast patient started calling facilities that might potentially accept him for rehab. Hes no longer showing signs of withdrawal from alcohol and would like to have something setup before discharge. Patient reports that his pain is better controlled with Naprosyn and Motrin. I can finally raise my arms above my shoulders again. He continues to report depression and no other MH symptoms have been observed. Plan: Patient requires a safe environment while his medications are adjusted to an effective and stable dosage. He is working on locating a rehab facility that will accept him and his form of payment.
[2023-08-02 19:00] VITALS: RESP 16; O2SAT 98
[2023-08-02 20:00] VITALS: BP 126/72; PULSE 62; RESP 16; TEMP 98.1; O2SAT 98
[2023-08-02] MEDS: divalproex sod 250mg ER (24-hour) tablet PO SCH (20:52)
[2023-08-02] MEDS: QUEtiapine 25mg tablet PO SCH (20:52)
--- NOTE | 2023-08-03 04:39 | NUR ---
Nursing Progress Note: Problem: Pt transferred from ER overflow to [facility] room 331B. Pt arrived on the unit at 1140 via w/c accompanied by [employer] and [employer]. Pt is on a 5150 for DTS. Pt was having suicidal ideation with a plan to jump in front of a car. Pt reports he did in fact jump in front of a car but it stopped. Pt reports a previous suicide attempt 6 years ago where he cut his wrists. Pt is a chronic alcoholic. Pt has a history of withdrawal seizures. Pt reports that he was in the [facility] for 2 months but he came here for a mental health eval and then began drinking again and did not return. Pt reports he has been drinking again for around 1 & 1/2 weeks. He was drinking a 5th of whiskey daily. Pt's last drink was 07/28/23. His BAL was 12. Pt has a Hx of Bipolar Disorder, pt reports he has Parkinson's though has no tremor, pt has a Hx of DVTs, chronic back pain, and alcoholic polyneuropathy. Interventions: Build positive rapport, maintained a safe and supportive environment, provided clear and simple instructions, encouraged compliance with medication and provided education, and maintained Q 15min safety checks. Response: Pt. watching TV in the community room with peers. Pt. has been noted sitting next to female peers and complementing female staff on their appearance. Pt. participated in evening snack. Took all night medications without issue. When asked about SI pt. states no, not tonight. He denies AH/VH. Pt. reports tramadol has been working very well for his pain. Pt. goes on a tangent about how he plans to [facility]. Pt. remained in the community room watching a movie before going to bed. Plan: Patient requires a safe environment while his medications are adjusted to an effective and stable dosage. He is working on locating a rehab facility that will accept him and his form of payment.
[2023-08-03] MEDS: NICOTINE POLACRILEX 2 MG LOZENGE BC PRN ×3 (05:40→20:28)
[2023-08-03 07:00] VITALS: RESP 16; O2SAT 98
[2023-08-03] MEDS: ARIPIPRAZOLE 10 MG TABLET PO SCH (07:32)
[2023-08-03] MEDS: nicotine 21mg patch - 24 hr TD SCH (07:32)
[2023-08-03] MEDS: DICLOFENAC SODIUM 1% gel 1 APPLIC APPLIC TP SCH ×3 (07:32→20:19)
[2023-08-03] MEDS: dextroamphetamine/amphetamine 5mg tablet PO SCH ×2 (07:33→12:43)
[2023-08-03] MEDS: gabapentin 100mg capsule PO SCH ×3 (07:33→20:21)
[2023-08-03] MEDS: naproxen 500mg tablet PO SCH ×2 (07:35→17:01)
[2023-08-03 08:00] VITALS: BP 139/76; PULSE 62; RESP 16; TEMP 97.9; O2SAT 98
[2023-08-03] MEDS: LORazepam 1 MG tablet PO PRN (16:15)
--- NOTE | 2023-08-03 16:21 | NUR ---
Nursing Progress Note: Jerome Problem: Pt transferred from ER overflow to [facility] room 331B. Pt arrived on the unit at 1140 via w/c accompanied by [employer] and [employer]. Pt is on a 5150 for DTS. Pt was having suicidal ideation with a plan to jump in front of a car. Pt reports he did in fact jump in front of a car but it stopped. Pt reports a previous suicide attempt 6 years ago where he cut his wrists. Pt is a chronic alcoholic. Pt has a history of withdrawal seizures. Pt reports that he was in the [facility] for 2 months but he came here for a mental health eval and then began drinking again and did not return. Pt reports he has been drinking again for around 1 & 1/2 weeks. He was drinking a 5th of whiskey daily. Pt's last drink was 07/28/23. His BAL was 12. Pt has a Hx of Bipolar Disorder, pt reports he has Parkinson's though has no tremor, pt has a Hx of DVTs, chronic back pain, and alcoholic polyneuropathy. Interventions: Build positive rapport, maintained a safe and supportive environment, provided clear and simple instructions, encouraged compliance with medication and provided education, and maintained Q 15min safety checks. Response: Received pt asleep. Pt woke for coffee and took medications cooperatively. Pt ate all meals in the community room. Performed 1:[address]. Pt denies SI/HI and AVH. Pt stated he doesnt feel SI here, because he feels safe, however he is concerned for when he leaves. When this RN told pt coffee was at 11 and the pt had to wait for football to come on he stated thats why I want to jump in front of a car. All these rules. Just f&%$ it! Pt expressed interest in going to a rehab facility when he leaves. Pt reports that he was diagnosed with Parkinsons 2 weeks ago and the Psychiatrist is going to contact his doctor on Friday to determine which medications he should be on. Pt napped intermittently throughout the shift. Observed watching TV with peers. Pt requested PRN Ativan for anxiety, given with good effect. Plan: Patient requires a safe environment while his medications are adjusted to an effective and stable dosage. He is working on locating a rehab facility that will accept him and his form of payment.
[2023-08-03 19:00] VITALS: RESP 18; O2SAT 98
[2023-08-03 20:00] VITALS: BP 159/84; PULSE 64; RESP 18; TEMP 97.7; O2SAT 98
[2023-08-03] MEDS: divalproex sod 250mg ER (24-hour) tablet PO SCH (20:21)
[2023-08-03] MEDS: QUEtiapine 25mg tablet PO SCH (20:21)
--- NOTE | 2023-08-04 04:08 | NUR ---
Nursing Progress Note: Jerome Problem: Pt transferred from ER overflow to [facility] room 331B. Pt arrived on the unit at 1140 via w/c accompanied by [employer] and [employer]. Pt is on a 5150 for DTS. Pt was having suicidal ideation with a plan to jump in front of a car. Pt reports he did in fact jump in front of a car but it stopped. Pt reports a previous suicide attempt 6 years ago where he cut his wrists. Pt is a chronic alcoholic. Pt has a history of withdrawal seizures. Pt reports that he was in the [facility] for 2 months but he came here for a mental health eval and then began drinking again and did not return. Pt reports he has been drinking again for around 1 & 1/2 weeks. He was drinking a 5th of whiskey daily. Pt's last drink was 07/28/23. His BAL was 12. Pt has a Hx of Bipolar Disorder, pt reports he has Parkinson's though has no tremor, pt has a Hx of DVTs, chronic back pain, and alcoholic polyneuropathy. Interventions: Build positive rapport, maintained a safe and supportive environment, provided clear and simple instructions, encouraged compliance with medication and provided education, and maintained Q 15min safety checks. Response:- Pt. received sitting in the recreation room watching TV w/peers. Pt. napped for a little while and participated in evening snack. Pt. took all medications but refused the Voltaren gel stating no, Im ok. PRN nicotine lozenge provided this shift. Pt. denies SI stating no, Im alright right now. He reports depression its always there. Pt. awaken at 2300 for a snack and returned to bed. Plan: Patient requires a safe environment while his medications are adjusted to an effective and stable dosage. He is working on locating a rehab facility that will accept him and his form of payment.
[2023-08-04 07:00] VITALS: RESP 18; O2SAT 95
[2023-08-04] MEDS: ARIPIPRAZOLE 10 MG TABLET PO SCH (07:19)
[2023-08-04] MEDS: gabapentin 100mg capsule PO SCH ×3 (07:19→20:41)
[2023-08-04] MEDS: dextroamphetamine/amphetamine 5mg tablet PO SCH ×2 (07:19→12:11)
[2023-08-04] MEDS: nicotine 21mg patch - 24 hr TD SCH (07:20)
[2023-08-04] MEDS: naproxen 500mg tablet PO SCH ×2 (07:30→17:00)
[2023-08-04] MEDS: DICLOFENAC SODIUM 1% gel 1 APPLIC APPLIC TP SCH ×2 (07:37→20:00)
[2023-08-04 07:43] VITALS: BP 126/76; PULSE 62; RESP 18; TEMP 96.4; O2SAT 95
--- NOTE | 2023-08-04 08:59 | NUR ---
Spoke to Alexis at [facility] (ph# [phone]). He reported there are not any beds currently. He reported Jerome called him 3 times over the weekend. He suggested Jerome keep calling him to check on beds. STEVEN Hwang
[2023-08-04] MEDS: LORazepam 1 MG tablet PO PRN (12:11)
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
[2023-08-04 19:00] VITALS: RESP 18; O2SAT 99
[2023-08-04 19:53] VITALS: BP 141/70; PULSE 65; RESP 18; TEMP 98.5; O2SAT 99
[2023-08-04] MEDS: divalproex sod 250mg ER (24-hour) tablet PO SCH (20:41)
[2023-08-04] MEDS: QUEtiapine 25mg tablet PO SCH (20:41)
[2023-08-04] MEDS: neomy sulf/bacitrac zn/polymixin b oint 14.2 gm tube TP SCH (20:44)
[2023-08-04] MEDS: hydrocortisone 1% OINTMENT 30gm tube TP SCH (20:46)
[2023-08-04] MEDS: NICOTINE POLACRILEX 2 MG LOZENGE BC PRN (20:56)
--- NOTE | 2023-08-05 04:52 | NUR ---
Nursing Progress Note: Jerome Problem: Pt transferred from ER overflow to [facility] room 331B. Pt arrived on the unit at 1140 via w/c accompanied by [employer] and [employer]. Pt is on a 5150 for DTS. Pt was having suicidal ideation with a plan to jump in front of a car. Pt reports he did in fact jump in front of a car but it stopped. Pt reports a previous suicide attempt 6 years ago where he cut his wrists. Pt is a chronic alcoholic. Pt has a history of withdrawal seizures. Pt reports that he was in the [facility] for 2 months but he came here for a mental health eval and then began drinking again and did not return. Pt reports he has been drinking again for around 1 & 1/2 weeks. He was drinking a 5th of whiskey daily. Pt's last drink was 07/28/23. His BAL was 12. Pt has a Hx of Bipolar Disorder, pt reports he has Parkinson's though has no tremor, pt has a Hx of DVTs, chronic back pain, and alcoholic polyneuropathy. Interventions: Build positive rapport, maintained a safe and supportive environment, provided clear and simple instructions, encouraged compliance with medication and provided education, and maintained Q 15min safety checks. Response: - Pt. out of room watching TV with peers in the community room. Participated In evening snack. Pt. appears eager to get night medications stating do I get my medications tonight, when do I get them. Both hydrocortisone and neosporin applied to red rash on upper back . Pt. refused Voltaren gel stating im okay. Offered to change linens on bed and he declined. Pt. denies SI but states If I was out there Id jump off of something. Medication compliant. PRN nicotine lozenge provided. Awaken in the night for snack and returned to bed. Plan: Patient requires a safe environment while his medications are adjusted to an effective and stable dosage. He is working on locating a rehab facility that will accept him and his form of payment.
[2023-08-05 07:00] VITALS: RESP 14; O2SAT 99
[2023-08-05] MEDS: dextroamphetamine/amphetamine 5mg tablet PO SCH ×2 (07:33→12:12)
[2023-08-05] MEDS: naproxen 500mg tablet PO SCH ×2 (07:33→16:45)
[2023-08-05] MEDS: gabapentin 100mg capsule PO SCH ×3 (07:33→20:41)
[2023-08-05] MEDS: ARIPIPRAZOLE 10 MG TABLET PO SCH (07:33)
[2023-08-05] MEDS: nicotine 21mg patch - 24 hr TD SCH (07:34)
[2023-08-05] MEDS: neomy sulf/bacitrac zn/polymixin b oint 14.2 gm tube TP SCH ×2 (07:34→20:39)
[2023-08-05] MEDS: hydrocortisone 1% OINTMENT 30gm tube TP SCH ×2 (07:34→20:39)
[2023-08-05] MEDS: DICLOFENAC SODIUM 1% gel 1 APPLIC APPLIC TP SCH ×2 (07:35→20:40)
[2023-08-05] MEDS ORDERED: ESCITALOPRAM OXALATE 5 MG TABLET PO ONE (08:05)
[2023-08-05 08:42] VITALS: BP 148/74; PULSE 65; RESP 14; TEMP 97; O2SAT 99
[2023-08-05] MEDS: LORazepam 1 MG tablet PO PRN (12:28)
[2023-08-05] MEDS: NICOTINE POLACRILEX 2 MG LOZENGE BC PRN (16:13)
--- NOTE | 2023-08-05 16:58 | NUR ---
Nursing Progress Note: Jerome Problem: Pt transferred from ER overflow to [facility] room 331B. Pt arrived on the unit at 1140 via w/c accompanied by [employer] and [employer]. Pt is on a 5150 for DTS. Pt was having suicidal ideation with a plan to jump in front of a car. Pt reports he did in fact jump in front of a car but it stopped. Pt reports a previous suicide attempt 6 years ago where he cut his wrists. Pt is a chronic alcoholic. Pt has a history of withdrawal seizures. Pt reports that he was in the [facility] for 2 months but he came here for a mental health eval and then began drinking again and did not return. Pt reports he has been drinking again for around 1 & 1/2 weeks. He was drinking a 5th of whiskey daily. Pt's last drink was 07/28/23. His BAL was 12. Pt has a Hx of Bipolar Disorder, pt reports he has Parkinson's though has no tremor, pt has a Hx of DVTs, chronic back pain, and alcoholic polyneuropathy. Interventions: Build positive rapport, maintained a safe and supportive environment, provided clear and simple instructions, encouraged compliance with medication and provided education, and maintained Q 15min safety checks. Response: Received pt asleep. Pt took morning medications cooperatively, declining arthritis gel. Pt ate breakfast in the community room. Performed 1:1 bedside. Pt denies SI/HI and AVH. Pt has a trending BP that is high, notified. Pt returned to room to nap after breakfast. Pt requested PRN Ativan for anxiety, given with good effect. Pt concerned with paying a bill today, which caused some anxiety; met with social service coordinator. Pt participated in snacks today. Pt napped intermittently throughout the shift. Pt appearance is unkempt. Plan: Patient requires a safe environment while his medications are adjusted to an effective and stable dosage. He is working on locating a rehab facility that will accept him and his form of payment.
[2023-08-05 19:40] VITALS: BP 146/69; PULSE 63; RESP 18; TEMP 97.7; O2SAT 100
[2023-08-05 19:41] VITALS: RESP 18; O2SAT 100
[2023-08-05] MEDS: divalproex sod 250mg ER (24-hour) tablet PO SCH (20:40)
[2023-08-05] MEDS ORDERED: lisinopril 2.5mg tablet PO ONE (20:50)
[2023-08-05] MEDS: QUEtiapine 25mg tablet PO SCH (20:59)
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
[2023-08-06 08:00] VITALS: BP 135/75; PULSE 66; RESP 16; TEMP 98.3; O2SAT 98
[2023-08-06] MEDS: neomy sulf/bacitrac zn/polymixin b oint 14.2 gm tube TP SCH ×2 (08:00→19:57)
[2023-08-06] MEDS: DICLOFENAC SODIUM 1% gel 1 APPLIC APPLIC TP SCH ×2 (08:00→20:00)
[2023-08-06] MEDS: hydrocortisone 1% OINTMENT 30gm tube TP SCH ×2 (08:00→19:58)
[2023-08-06] MEDS: ARIPIPRAZOLE 10 MG TABLET PO SCH (08:22)
[2023-08-06] MEDS: nicotine 21mg patch - 24 hr TD SCH (08:22)
[2023-08-06] MEDS: dextroamphetamine/amphetamine 5mg tablet PO SCH ×2 (08:22→13:45)
[2023-08-06] MEDS: ESCITALOPRAM OXALATE 5 MG TABLET PO SCH (08:22)
[2023-08-06] MEDS: gabapentin 100mg capsule PO SCH ×3 (08:23→19:58)
[2023-08-06] MEDS: lisinopril 2.5mg tablet PO SCH (08:23)
[2023-08-06] MEDS: naproxen 500mg tablet PO SCH ×2 (08:30→17:31)
[2023-08-06] MEDS: LORazepam 1 MG tablet PO PRN ×2 (15:59→21:32)
[2023-08-06] MEDS: NICOTINE POLACRILEX 2 MG LOZENGE BC PRN (15:59)
--- NOTE | 2023-08-06 16:00 | NUR ---
Nursing Progress Note: Jerome Problem: Pt transferred from ER overflow to [facility] room 331B. Pt arrived on the unit at 1140 via w/c accompanied by [employer] and [employer]. Pt is on a 5150 for DTS. Pt was having suicidal ideation with a plan to jump in front of a car. Pt reports he did in fact jump in front of a car but it stopped. Pt reports a previous suicide attempt 6 years ago where he cut his wrists. Pt is a chronic alcoholic. Pt has a history of withdrawal seizures. Pt reports that he was in the [facility] for 2 months but he came here for a mental health eval and then began drinking again and did not return. Pt reports he has been drinking again for around 1 & 1/2 weeks. He was drinking a 5th of whiskey daily. Pt's last drink was 07/28/23. His BAL was 12. Pt has a Hx of Bipolar Disorder, pt reports he has Parkinson's though has no tremor, pt has a Hx of DVTs, chronic back pain, and alcoholic polyneuropathy. Interventions: Build positive rapport, maintained a safe and supportive environment, provided clear and simple instructions, encouraged compliance with medication and provided education, and maintained Q 15min safety checks. Response: Pt sleeping upon beginning of shift. Woke up for breakfast and ate in community area with other peers. Pt. has been appropriate to staff and took all medications. Pt given an Ativan for anxiety this afternoon and expressed his desire to have a new social media sr strategy manager pt stated " my social media sr strategy manager hates me and I am not fond of her either." Denies any other problems or needs. Naproxen given for back pain with relief. Plan: Patient requires a safe environment while his medications are adjusted to an effective and stable dosage. He is working on locating a rehab facility that will accept him and his form of payment.
[2023-08-06 19:34] VITALS: BP 116/67; PULSE 72; RESP 16; TEMP 98.3; O2SAT 99
[2023-08-06] MEDS: divalproex sod 250mg ER (24-hour) tablet PO SCH (19:58)
[2023-08-06] MEDS: QUEtiapine 25mg tablet PO SCH (19:59)
--- NOTE | 2023-08-07 04:04 | NUR ---
Nursing Progress Note: Problem: Pt transferred from ER overflow to [facility] room 331B. Pt arrived on the unit at 1140 via w/c accompanied by [employer] and security. Pt is on a 5150 for DTS. Pt was having suicidal ideation with a plan to jump in front of a car. Pt reports he did in fact jump in front of a car but it stopped. Pt reports a previous suicide attempt 6 years ago where he cut his wrists. Pt is a chronic alcoholic. Pt has a history of withdrawal seizures. Pt reports that he was in the [facility] for 2 months but he came here for a mental health evaluation and then began drinking again and did not return. Pt reports he has been drinking again for around 1 & 1/2 weeks. He was drinking a 5th of whiskey daily. Pt's last drink was 07/28/23. His BAL was 12. Pt has a history of Bipolar Disorder, patient reports he has Parkinson's though has no tremor, patient has a history of DVTs, chronic back pain, and alcoholic polyneuropathy. Interventions: Build positive rapport, maintained a safe and supportive environment, provided clear and simple instructions, encouraged compliance with medication and provided education, and maintained Q 15min safety checks. Response: This nurse resumed care for patient at 1830. Patient observed lying in bed but awake. Patient denies all symptoms except pain in the shoulder/back area. This nurse applied the hydrocortisone + ABX to shoulders and upper back. Patient later requested Ativan PRN. Patient remained in bed rest of night. Plan: Patient requires a safe environment while his medications are adjusted to an effective and stable dosage. He is working on locating a rehab facility that will accept him and his form of payment.
[2023-08-07 07:00] VITALS: RESP 16; O2SAT 95
[2023-08-07 08:00] VITALS: BP 121/71; PULSE 62; RESP 16; TEMP 97.6; O2SAT 95
[2023-08-07] MEDS: DICLOFENAC SODIUM 1% gel 1 APPLIC APPLIC TP SCH ×3 (08:00→20:00)
[2023-08-07] MEDS: hydrocortisone 1% OINTMENT 30gm tube TP SCH ×3 (08:00→20:06)
[2023-08-07] MEDS: neomy sulf/bacitrac zn/polymixin b oint 14.2 gm tube TP SCH ×3 (08:00→20:06)
[2023-08-07] MEDS: ARIPIPRAZOLE 10 MG TABLET PO SCH (08:31)
[2023-08-07] MEDS: multivitamins, therapeutics tablet PO SCH (08:32)
[2023-08-07] MEDS: folic acid 1mg tablet PO SCH (08:32)
[2023-08-07] MEDS: ESCITALOPRAM OXALATE 5 MG TABLET PO SCH (08:32)
[2023-08-07] MEDS: thiamine 100mg tablet PO SCH (08:32)
[2023-08-07] MEDS: gabapentin 100mg capsule PO SCH ×3 (08:32→20:06)
[2023-08-07] MEDS: lisinopril 2.5mg tablet PO SCH (08:33)
[2023-08-07] MEDS: naproxen 500mg tablet PO SCH ×2 (08:35→17:49)
[2023-08-07] MEDS: nicotine 21mg patch - 24 hr TD SCH (08:36)
[2023-08-07] MEDS: dextroamphetamine/amphetamine 5mg tablet PO SCH ×2 (08:37→12:43)
[2023-08-07] MEDS: LORazepam 1 MG tablet PO PRN (08:47)
--- NOTE | 2023-08-07 17:08 | NUR ---
Nursing Progress Note: Problem : Pt transferred from ER overflow to [facility] room 331B. Pt arrived on the unit at 1140 via w/c accompanied by [employer] and [employer]. Pt is on a 5150 for DTS. Pt was having suicidal ideation with a plan to jump in front of a car. Pt reports he did in fact jump in front of a car but it stopped. Pt reports a previous suicide attempt 6 years ago where he cut his wrists. Pt is a chronic alcoholic. Pt has a history of withdrawal seizures. Pt reports that he was in the [facility] for 2 months but he came here for a mental health evaluation and then began drinking again and did not return. Pt reports he has been drinking again for around 1 & 1/2 weeks. He was drinking a 5th of whiskey daily. Pt's last drink was 07/28/23. His BAL was 12. Pt has a history of Bipolar Disorder, patient reports he has Parkinson's though has no tremor, patient has a history of DVTs, chronic back pain, and alcoholic polyneuropathy. Interventions : Maintained a safe and supportive environment, ensured contract for safety, provided clear and simple instructions, provided active listening and positive encouragement, and maintained Q 15 min safety checks. Response : Received pt. sleeping in bed at the beginning of the shift, he was awoken to attend breakfast in the Group Room, and afterwards retreated back to bed where he proceeded to nap throughout much of the shift. 1:1 was completed at bedside, pt. presents as cooperative and fatigued. He denies any S/I, H/I, A/V/RICE, and no delusional statements were made. Pt. does endorse ongoing depression and anxiety and states, "I'm trying to get into a rehab program." He requested PRN Ativan and this was administered with effectiveness. Pt. also reported that he did not sleep well last night and woke up approximately eight times. Pt. refused all ordered topical medications this shift. Plan : Pt. continues to require a safe and supportive environment.
[2023-08-07 19:38] VITALS: BP 130/70; PULSE 65; RESP 16; TEMP 98.2; O2SAT 100
[2023-08-07 19:39] VITALS: RESP 16; O2SAT 100
[2023-08-07] MEDS: divalproex sod 250mg ER (24-hour) tablet PO SCH ×2 (20:07→21:00)
[2023-08-07] MEDS: QUEtiapine 25mg tablet PO SCH (20:07)
--- NOTE | 2023-08-08 04:44 | NUR ---
Nursing Progress Note: Problem: Pt transferred from ER overflow to [facility] room 331B. Pt arrived on the unit at 1140 via w/c accompanied by [employer] and security. Pt is on a 5150 for DTS. Pt was having suicidal ideation with a plan to jump in front of a car. Pt reports he did in fact jump in front of a car but it stopped. Pt reports a previous suicide attempt 6 years ago where he cut his wrists. Pt is a chronic alcoholic. Pt has a history of withdrawal seizures. Pt reports that he was in the [facility] for 2 months but he came here for a mental health evaluation and then began drinking again and did not return. Pt reports he has been drinking again for around 1 & 1/2 weeks. He was drinking a 5th of whiskey daily. Pt's last drink was 07/28/23. His BAL was 12. Pt has a history of Bipolar Disorder, patient reports he has Parkinson's though has no tremor, patient has a history of DVTs, chronic back pain, and alcoholic polyneuropathy. Interventions: Maintained a safe and supportive environment, ensured contract for safety, provided clear and simple instructions, provided active listening and positive encouragement, and maintained Q 15 min safety checks. Response: This nurse resumed care for patient at 1830. Patient was observed snoring in bed lying supine position. During 1:1, patient denied all symptoms but pain. Patient c/o pain to shoulders/back area. Patient participated in HS snack where he was compliant with medication administration. After snack patient returned to room where he remained for the rest of the night. Patient currently in bed with eyes closed. No obvious signs of distress to note. *patient approached nurse station @430 asking for Jell-o. Patient smiling this morning and singing to designer/writer. Plan: Pt. continues to require a safe and supportive environment.
[2023-08-08 07:00] VITALS: RESP 16; O2SAT 97
[2023-08-08 08:00] VITALS: BP 137/67; PULSE 60; RESP 16; TEMP 97.4; O2SAT 97
[2023-08-08] MEDS: DICLOFENAC SODIUM 1% gel 1 APPLIC APPLIC TP SCH ×2 (08:00→20:00)
[2023-08-08] MEDS: ARIPIPRAZOLE 10 MG TABLET PO SCH (08:32)
[2023-08-08] MEDS: dextroamphetamine/amphetamine 5mg tablet PO SCH ×2 (08:32→13:23)
[2023-08-08] MEDS: folic acid 1mg tablet PO SCH (08:34)
[2023-08-08] MEDS: gabapentin 100mg capsule PO SCH ×3 (08:34→20:24)
[2023-08-08] MEDS: ESCITALOPRAM OXALATE 5 MG TABLET PO SCH (08:34)
[2023-08-08] MEDS: multivitamins, therapeutics tablet PO SCH (08:34)
[2023-08-08] MEDS: nicotine 21mg patch - 24 hr TD SCH (08:35)
[2023-08-08] MEDS: naproxen 500mg tablet PO SCH ×2 (08:35→18:05)
[2023-08-08] MEDS: thiamine 100mg tablet PO SCH (08:35)
[2023-08-08] MEDS: LORazepam 1 MG tablet PO PRN ×2 (08:36→20:24)
[2023-08-08] MEDS: lisinopril 2.5mg tablet PO SCH (08:37)
[2023-08-08] MEDS: neomy sulf/bacitrac zn/polymixin b oint 14.2 gm tube TP SCH ×2 (13:32→20:00)
[2023-08-08] MEDS: hydrocortisone 1% OINTMENT 30gm tube TP SCH ×2 (13:32→20:00)
--- NOTE | 2023-08-08 14:02 | NUR ---
Nursing Progress Note: Problem : Pt was transferred from ER overflow to [facility] Pt is on a 5150 for DTS. Pt was having suicidal ideation with a plan to jump in front of a car. Pt reports he did in fact jump in front of a car but it stopped. Pt reports a previous suicide attempt 6 years ago where he cut his wrists. Pt is a chronic alcoholic. Pt has a history of withdrawal seizures. Pt reports that he was in the [facility] for 2 months but he came here for a mental health evaluation and then began drinking again and did not return. Pt has a history of Bipolar Disorder, patient reports he has Parkinson's though has no tremor, patient has a history of DVTs, chronic back pain, and alcoholic polyneuropathy. Interventions : Maintained a safe and supportive environment, ensured contract for safety, provided clear and simple instructions, provided active listening and positive encouragement, encouraged participation on the unit, and maintained Q 15 min safety checks. Response : Received pt. sleeping in bed at the beginning of the shift, he was awoken to attend breakfast in the Group Room, and afterwards retreated back as is his routine. Pt. again napped throughout much of the morning. He reported anxiety and PRN Ativan was administered with effectiveness. 1:1 was completed later at bedside, pt. denies any S/I and states, "Not really." He does endorse ongoing depression and reports he is going to feel this way until he gets into a place where he can stay for a while, have his own TV, and smoke cigarettes. Pt. is observed to be present on the unit at intervals, but does not attend group, and is withdrawn. His sister dropped off an envelop for him and this was delivered to pt. Plan : Pt. continues to require a safe and supportive environment.
[2023-08-08 20:00] VITALS: BP 139/96; PULSE 60; RESP 14; TEMP 98.7; O2SAT 99
[2023-08-08] MEDS: QUEtiapine 25mg tablet PO SCH (20:24)
[2023-08-08] MEDS: divalproex sod 250mg ER (24-hour) tablet PO SCH (20:24)
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
[2023-08-09 07:00] VITALS: RESP 14; O2SAT 97
[2023-08-09 08:00] VITALS: BP 127/70; PULSE 60; RESP 14; TEMP 97.7; O2SAT 97
[2023-08-09] MEDS: DICLOFENAC SODIUM 1% gel 1 APPLIC APPLIC TP SCH ×2 (08:00→20:00)
[2023-08-09] MEDS: hydrocortisone 1% OINTMENT 30gm tube TP SCH ×2 (08:00→20:27)
[2023-08-09] MEDS: neomy sulf/bacitrac zn/polymixin b oint 14.2 gm tube TP SCH ×2 (08:00→20:27)
[2023-08-09] MEDS: ARIPIPRAZOLE 10 MG TABLET PO SCH (08:18)
[2023-08-09] MEDS: thiamine 100mg tablet PO SCH (08:19)
[2023-08-09] MEDS: dextroamphetamine/amphetamine 5mg tablet PO SCH ×2 (08:19→13:58)
[2023-08-09] MEDS: gabapentin 100mg capsule PO SCH ×3 (08:19→20:25)
[2023-08-09] MEDS: ESCITALOPRAM OXALATE 5 MG TABLET PO SCH (08:19)
[2023-08-09] MEDS: folic acid 1mg tablet PO SCH (08:19)
[2023-08-09] MEDS: multivitamins, therapeutics tablet PO SCH (08:19)
[2023-08-09] MEDS: lisinopril 2.5mg tablet PO SCH (08:20)
[2023-08-09] MEDS: naproxen 500mg tablet PO SCH ×2 (08:20→16:52)
[2023-08-09] MEDS: LORazepam 1 MG tablet PO PRN ×2 (08:21→16:52)
[2023-08-09] MEDS: nicotine 21mg patch - 24 hr TD SCH (08:21)
--- NOTE | 2023-08-09 12:28 | NUR ---
Pt. is off the unit at this time receiving an ordered MRI on his left shoulder.
--- NOTE | 2023-08-09 12:43 | NUR ---
Pt. back from MRI at this time.
--- NOTE | 2023-08-09 15:33 | NUR ---
Nursing Progress Note: Problem : Pt was transferred from ER overflow to [facility]. Pt is on a 5150 for DTS. Pt was having suicidal ideation with a plan to jump in front of a car. Pt reports he did in fact jump in front of a car but it stopped. Pt reports a previous suicide attempt 6 years ago where he cut his wrists. Pt is a chronic alcoholic. Pt has a history of withdrawal seizures. Pt reports that he was in the [facility] for 2 months but he came here for a mental health evaluation and then began drinking again and did not return. Pt has a history of Bipolar Disorder, patient reports he has Parkinson's though has no tremor, patient has a history of DVTs, chronic back pain, and alcoholic polyneuropathy. Interventions : Maintained a safe and supportive environment, ensured contract for safety, provided clear and simple instructions, provided active listening and positive encouragement, encouraged participation on the unit, facilitated ordered MRI, and maintained Q 15 min safety checks. Response : Received pt. sleeping in bed at the beginning of the shift, he was awoken to attend breakfast in the Group Room, and afterwards retreated back as is his routine. Pt. again reported anxiety and PRN Ativan was administered with effectiveness. He was awoken later for an ordered MRI of his left shoulder r/t decreased range of motion in this area, results are pending at this time. Pt. was also evaluated by physical therapy this shift, and they provided him with some exercises to do, but are not recommending continuation of treatment at this time. 1:1 was completed later at bedside, pt. continues to present with a blunted affect. He again reported restless sleep, but it was found that his Nicotine patch was not removed which may have contributed to this. An intervention was placed by this commercial loan underwriter to remind staff to remove the patch at . Pt. reports passive S/I this shift, however denies any current plan. Upon further questioning, he endorses ongoing concern regarding housing and also the dissolution of the marriage to his of thirty years. Pt. continued on to state, "Just when I needed her the most she left. 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 napped intermittently during the shift, and was observed to be up watching TV with others at intervals. Plan : Pt. continues to require a safe and supportive environment.
[2023-08-09 19:26] VITALS: RESP 14; O2SAT 96
[2023-08-09 19:29] VITALS: BP 130/72; PULSE 63; RESP 14; TEMP 98.8; O2SAT 96
[2023-08-09] MEDS: QUEtiapine 25mg tablet PO SCH (20:25)
[2023-08-09] MEDS: divalproex sod 250mg ER (24-hour) tablet PO SCH (20:25)
--- NOTE | 2023-08-10 00:18 | NUR ---
Nursing Progress Note: Problem : Pt was transferred from ER overflow to [facility]. Pt is on a 5150 for DTS. Pt was having suicidal ideation with a plan to jump in front of a car. Pt reports he did in fact jump in front of a car but it stopped. Pt reports a previous suicide attempt 6 years ago where he cut his wrists. Pt is a chronic alcoholic. Pt has a history of withdrawal seizures. Pt reports that he was in the [facility] for 2 months but he came here for a mental health evaluation and then began drinking again and did not return. Pt has a history of Bipolar Disorder, patient reports he has Parkinson's though has no tremor, patient has a history of DVTs, chronic back pain, and alcoholic polyneuropathy. Interventions : Maintained a safe and supportive environment, ensured contract for safety, provided clear and simple instructions, provided active listening and positive encouragement, encouraged participation on the unit, facilitated ordered MRI, and maintained Q 15 min safety checks. Discussed his discharge plans with him. Response; The patient has been up on the unit. He was cooperative during the evening assessment. He is medication compliant and he denied having medication side effects. He reports that he is sleeping well. When asked how his mood was he stated, "It's alright" He denies that he feels suicidal here on the unit but quickly added if he was not on the unit "that would be a different story" He is hoping to get a placement at "[facility]" He stated that he is unable to return to the [facility] because he was drinking. He stated that he is craving ETOH. He stated that "I worry they will discharge me before I have anywhere to go" He will receive funds on the and stated that he receives around $3000/month. Plan; Continue plan of care.
[2023-08-10] MEDS: thiamine 100mg tablet PO SCH (07:44)
[2023-08-10] MEDS: multivitamins, therapeutics tablet PO SCH (07:45)
[2023-08-10] MEDS: ARIPIPRAZOLE 10 MG TABLET PO SCH (07:45)
[2023-08-10] MEDS: folic acid 1mg tablet PO SCH (07:45)
[2023-08-10] MEDS: lisinopril 2.5mg tablet PO SCH (07:45)
[2023-08-10] MEDS: gabapentin 100mg capsule PO SCH ×3 (07:46→21:02)
[2023-08-10] MEDS: naproxen 500mg tablet PO SCH ×2 (07:49→17:30)
[2023-08-10] MEDS: dextroamphetamine/amphetamine 5mg tablet PO SCH ×2 (07:49→13:53)
[2023-08-10] MEDS: hydrocortisone 1% OINTMENT 30gm tube TP SCH ×2 (07:50→21:07)
[2023-08-10] MEDS: DICLOFENAC SODIUM 1% gel 1 APPLIC APPLIC TP SCH ×2 (07:50→21:07)
[2023-08-10] MEDS: neomy sulf/bacitrac zn/polymixin b oint 14.2 gm tube TP SCH ×2 (07:51→21:08)
[2023-08-10] MEDS: nicotine 21mg patch - 24 hr TD SCH (07:53)
[2023-08-10 08:00] VITALS: BP 142/73; PULSE 64; RESP 16; TEMP 97.5; O2SAT 96
[2023-08-10] MEDS ORDERED: ESCITALOPRAM OXALATE 5 MG TABLET PO SCH (08:00)
--- NOTE | 2023-08-10 17:03 | NUR ---
Nursing Progress Note: Jerome Problem: [facility]. Pt is on a 5150 for DTS. Pt was having suicidal ideation with a plan to jump in front of a car. Pt reports he did in fact jump in front of a car but it stopped. Pt reports a previous suicide attempt 6 years ago where he cut his wrists. Pt is a chronic alcoholic. Pt has a history of withdrawal seizures. Pt reports that he was in the [facility] for 2 months but he came here for a mental health evaluation and then began drinking again and did not return. Pt has a history of Bipolar Disorder, patient reports he has Parkinson's though has no tremor, patient has a history of DVTs, chronic back pain, and alcoholic polyneuropathy. Interventions: Maintained a safe and supportive environment, ensured contract for safety, provided clear and simple instructions, provided active listening and positive encouragement, encouraged participation on the unit, facilitated ordered MRI, and maintained Q 15 min safety checks. Discussed his discharge plans with him. Response: Pt. was up for vitals and breakfast, compliant with meds, no noted behavioral issues. Asked him how he is feeling he said, Good today, just a little tired. Asked him about SI?HI, both of which he denies as well as denies A/V/H. Asked him if he had a discharge plan he said , No. not yet. Asked him if he would feel safe if he was discharged he said, No. They said they would find me a place before discharging me. I would definitely kill myself if I had to leave without a place, they told me they would get a place before discharging me. -Appearance: casually groomed -Eye contact: good -Mood: calm -Affect: smiling -Speech: soft -Thought Process: impaired -A/V/H: AH present God talks to me. -SI/HI: denies -ADLs: independent with little prompting -Insight: none -Judgement: poor Plan: Pt. cannot contract for safety outside of the facility and states that he would "kill himself." If discharged at this time he could be a high risk for safety and re-hospitalization. Addendum: 08/10/23 at 1706 by Kristin Singleton LVN correction to last note: -Appearance: casually groomed -Eye contact: good -Mood: calm -Affect: smiling -Speech: WNL -Thought Process: intact -A/V/H: denies -SI/HI: cannot contract for safety outside of the facility denies HI -ADLs: independent with little prompting -Insight: fair -Judgement: poor
[2023-08-10 19:00] VITALS: RESP 16; O2SAT 98
[2023-08-10 20:00] VITALS: BP 138/77; PULSE 60; RESP 16; TEMP 97; O2SAT 98
[2023-08-10] MEDS: QUEtiapine 25mg tablet PO SCH (21:02)
[2023-08-10] MEDS: divalproex sod 250mg ER (24-hour) tablet PO SCH (21:02)
[2023-08-10] MEDS: NICOTINE POLACRILEX 2 MG LOZENGE BC PRN (21:09)
--- NOTE | 2023-08-11 03:27 | NUR ---
Nursing Progress Note: Problem : Pt was transferred from ER overflow to [facility]. Pt is on a 5150 for DTS. Pt was having suicidal ideation with a plan to jump in front of a car. Pt reports he did in fact jump in front of a car but it stopped. Pt reports a previous suicide attempt 6 years ago where he cut his wrists. Pt is a chronic alcoholic. Pt has a history of withdrawal seizures. Pt reports that he was in the [facility] for 2 months but he came here for a mental health evaluation and then began drinking again and did not return. Pt has a history of Bipolar Disorder, patient reports he has Parkinson's though has no tremor, patient has a history of DVTs, chronic back pain, and alcoholic polyneuropathy. Interventions : Maintained a safe and supportive environment, ensured contract for safety, provided clear and simple instructions, provided active listening and positive encouragement, encouraged participation on the unit, facilitated ordered MRI, and maintained Q 15 min safety checks. Discussed his discharge plans with him. Response: Pt received on unit in day room. He is watching TV. He mainly keeps to himself during shift. He is medication compliant. Pt has no sleeping issues. He denies S/I. He continues awaiting placement. Plan; Continue plan of care.
[2023-08-11 07:00] VITALS: RESP 16; O2SAT 95
[2023-08-11] MEDS: dextroamphetamine/amphetamine 5mg tablet PO SCH ×2 (07:47→13:10)
[2023-08-11] MEDS: ARIPIPRAZOLE 10 MG TABLET PO SCH (07:47)
[2023-08-11] MEDS: folic acid 1mg tablet PO SCH (07:48)
[2023-08-11] MEDS: multivitamins, therapeutics tablet PO SCH (07:48)
[2023-08-11] MEDS: gabapentin 100mg capsule PO SCH ×3 (07:48→20:03)
[2023-08-11] MEDS: nicotine 21mg patch - 24 hr TD SCH (07:48)
[2023-08-11] MEDS: thiamine 100mg tablet PO SCH (07:48)
[2023-08-11] MEDS: lisinopril 2.5mg tablet PO SCH (07:51)
[2023-08-11] MEDS: hydrocortisone 1% OINTMENT 30gm tube TP SCH ×2 (07:54→20:00)
[2023-08-11] MEDS: neomy sulf/bacitrac zn/polymixin b oint 14.2 gm tube TP SCH ×2 (07:55→20:00)
[2023-08-11] MEDS: DICLOFENAC SODIUM 1% gel 1 APPLIC APPLIC TP SCH ×2 (07:55→20:00)
[2023-08-11 08:00] VITALS: BP 121/72; PULSE 55; RESP 16; TEMP 97.9; O2SAT 95
[2023-08-11] MEDS: naproxen 500mg tablet PO SCH ×2 (08:32→17:07)
[2023-08-11] MEDS: ESCITALOPRAM 10 mg tablet 10 MG TABLET PO SCH (08:32)
--- NOTE | 2023-08-11 09:24 | NUR ---
F/u: Pt PO ~90% avg regular diet w/ occasional snacks meeting estimated needs. Noted elevated TG/LDL 07/31 in EMR, however, this was taken after lunch unsure of accuracy. Receiving routine thiamine, folic acid, MVI for eto hx per EMR. LBM 08/09 per EMR. No nutrition interventions at this time. Will continue to follow. Recommendations: 1) Continue regular diet 2) Routine thiamine, folic acid, MVI for etoh hx per MD 3) Bowel care PRN 4) Weekly scaled weights Addendum: 08/11/23 at [address] Amended: Links added.
--- NOTE | 2023-08-11 11:35 | NUR ---
Spoke to Alexis at [facility] (ph# [phone]) who reported Jerome had just called. He stated they do not have any beds available currently. Called the [facility] and Jerome is currently on the "no services" list. He would have to go to a Wed meeting to try to reconcile if he wants to regain services. STEVEN Hwang
--- NOTE | 2023-08-11 16:41 | NUR ---
Nursing Progress Note: Problem: Pt was transferred from ER overflow to [facility]. Pt is on a 5150 for DTS. Pt was having suicidal ideation with a plan to jump in front of a car. Pt reports he did in fact jump in front of a car but it stopped. Pt reports a previous suicide attempt 6 years ago where he cut his wrists. Pt is a chronic alcoholic. Pt has a history of withdrawal seizures. Pt reports that he was in the [facility] for 2 months but he came here for a mental health evaluation and then began drinking again and did not return. Pt has a history of Bipolar Disorder, patient reports he has Parkinson's though has no tremor, patient has a history of DVTs, chronic back pain, and alcoholic polyneuropathy. Interventions: Maintained a safe and supportive environment, ensured contract for safety, provided clear and simple instructions, provided active listening and positive encouragement, encouraged participation on the unit, facilitated ordered MRI, and maintained Q 15 min safety checks. Discussed his discharge plans with him. Response: Pt. was up for vitals and breakfast, compliant with meds, no noted behavioral issues. Asked him how he is feeling he said, Feeling anxious today about not knowing where I am going to go, being in here at 67 years old instead of in a house, my life just isnt what I had expected it to be. Asked about SI/HI. He states, No. I dont wanna hurt anyone, and in here I dont wanna hurt myself, but if I wasnt in here I couldnt tell you what would happen. I wouldnt be safe. -Appearance: casually groomed -Eye contact: good -Mood: calm, depressed -Affect: congruent with mood -Speech: WNL -Thought Process: intact -A/V/H: denies -SI/HI: denies HI, cannot contract for safety outside of the facility -ADLs: independent with little prompting -Insight: fair-poor -Judgement: poor Plan: Pt. cannot formulate a viable plan, he cannot state how he would provide for his basic needs and pt. cannot contract for safety outside of the facility. If discharged at this time he could be a high risk for safety and re-hospitalization.
[2023-08-11 19:00] VITALS: RESP 16; O2SAT 98
[2023-08-11 20:00] VITALS: BP 121/69; PULSE 74; RESP 16; TEMP 98; O2SAT 100
[2023-08-11] MEDS: QUEtiapine 25mg tablet PO SCH (20:04)
[2023-08-11] MEDS: NICOTINE POLACRILEX 2 MG LOZENGE BC PRN (20:04)
[2023-08-11] MEDS: divalproex sod 250mg ER (24-hour) tablet PO SCH (20:04)
[2023-08-11] MEDS: LORazepam 1 MG tablet PO PRN (21:37)
--- NOTE | 2023-08-12 05:02 | NUR ---
Nursing Progress Note: Problem : Pt was transferred from ER overflow to [facility] Pt is on a 5150 for DTS. Pt was having suicidal ideation with a plan to jump in front of a car. Pt reports he did in fact jump in front of a car but it stopped. Pt reports a previous suicide attempt 6 years ago where he cut his wrists. Pt is a chronic alcoholic. Pt has a history of withdrawal seizures. Pt reports that he was in the [facility] for 2 months but he came here for a mental health evaluation and then began drinking again and did not return. Pt has a history of Bipolar Disorder, patient reports he has Parkinson's though has no tremor, patient has a history of DVTs, chronic back pain, and alcoholic polyneuropathy. Interventions : Maintained a safe and supportive environment, ensured contract for safety, provided clear and simple instructions, provided active listening and positive encouragement, encouraged participation on the unit, facilitated ordered MRI, and maintained Q 15 min safety checks. Discussed his discharge plans with him. Response: Pt received in day room watching TV. Pt attended snack. Pt appears downcast. He wants to quit smoking. He reports his last cigarette was 10 days ago when he had his last drink. He doesn't want to drink anymore to be a positive influence on his anticipated grandchildren. He remains hopeful. He denies S/I. He does not engage in conversation with peers during shift. He is PO medication compliant. Pt has no sleeping issues. He accesses Nicotine lozenge during shift. He declined 3x creams during medication pass. Plan; Continue plan of care.
[2023-08-12 07:00] VITALS: RESP 16; O2SAT 94
[2023-08-12] MEDS: gabapentin 100mg capsule PO SCH ×3 (07:33→20:36)
[2023-08-12] MEDS: multivitamins, therapeutics tablet PO SCH (07:33)
[2023-08-12] MEDS: thiamine 100mg tablet PO SCH (07:33)
[2023-08-12] MEDS: folic acid 1mg tablet PO SCH (07:33)
[2023-08-12] MEDS: ARIPIPRAZOLE 10 MG TABLET PO SCH ×2 (07:33→08:14)
[2023-08-12] MEDS: naproxen 500mg tablet PO SCH ×2 (07:33→17:04)
[2023-08-12] MEDS: nicotine 21mg patch - 24 hr TD SCH (07:34)
[2023-08-12] MEDS: dextroamphetamine/amphetamine 5mg tablet PO SCH ×2 (07:34→12:55)
[2023-08-12] MEDS: lisinopril 2.5mg tablet PO SCH (07:34)
[2023-08-12 08:00] VITALS: BP 123/66; PULSE 60; RESP 16; TEMP 97.6; O2SAT 94
[2023-08-12] MEDS: neomy sulf/bacitrac zn/polymixin b oint 14.2 gm tube TP SCH ×2 (08:00→20:00)
[2023-08-12] MEDS: DICLOFENAC SODIUM 1% gel 1 APPLIC APPLIC TP SCH ×2 (08:00→20:00)
[2023-08-12] MEDS: hydrocortisone 1% OINTMENT 30gm tube TP SCH ×2 (08:00→20:00)
[2023-08-12] MEDS: ESCITALOPRAM 10 mg tablet 10 MG TABLET PO SCH (08:14)
[2023-08-12] MEDS: naltrexone 50mg tablet PO SCH (15:20)
--- NOTE | 2023-08-12 15:47 | NUR ---
Nursing Progress Note: Problem: Pt was transferred from ER overflow to [facility]. Pt is on a 5150 for DTS. Pt was having suicidal ideation with a plan to jump in front of a car. Pt reports he did in fact jump in front of a car but it stopped. Pt reports a previous suicide attempt 6 years ago where he cut his wrists. Pt is a chronic alcoholic. Pt has a history of withdrawal seizures. Pt reports that he was in the [facility] for 2 months but he came here for a mental health evaluation and then began drinking again and did not return. Pt has a history of Bipolar Disorder, patient reports he has Parkinson's though has no tremor, patient has a history of DVTs, chronic back pain, and alcoholic polyneuropathy. Interventions: Maintained a safe and supportive environment, ensured contract for safety, provided clear and simple instructions, provided active listening and positive encouragement, encouraged participation on the unit, facilitated ordered MRI, and maintained Q 15 min safety checks. Discussed his discharge plans with him. Response: Pt. was up for vitals and breakfast, compliant with meds, no noted behavioral issues. Asked him how he is feeling he said, Stressed. Asked him about A/V/H both of which he denies, asked about SI/HI, he states, Well I dont wanna hurt anyone but I am having thoughts of hurting myself, no plan cause I feel safe in here but I start worrying when I think of discharge. I dont know what I am going to or where I am going, I dont know the next step. Asked if he has the means to provide for his daily needs he said, I do have an income, nothing left right now but I get it on the 8th, but even with that each month I still dont think I would be able to care for myself right if I was out there. I am have nowhere to go, I dont know what I am going to do and if I was out there right now I would hurt myself. -Appearance: casually groomed -Eye contact: good -Mood: calm, depressed -Affect: congruent with mood -Speech: WNL -Thought Process: intact -A/V/H: denies -SI/HI: denies HI, cannot contract for safety outside of the facility -ADLs: independent with little prompting -Insight: fair-poor -Judgement: poor Plan: Pt. cannot formulate a viable plan, he cannot state how he would provide for his basic needs and he is currently having thoughts of self-harm with no plan, but pt. cannot contract for safety outside of the facility. If discharged at this time he could be a high risk for safety and re-hospitalization.
[2023-08-12] MEDS: LORazepam 1 MG tablet PO PRN ×2 (17:09→21:08)
[2023-08-12 19:00] VITALS: RESP 18; O2SAT 96
[2023-08-12 20:00] VITALS: BP 131/71; PULSE 64; RESP 18; TEMP 97.7; O2SAT 96
[2023-08-12] MEDS: QUEtiapine 25mg tablet PO SCH (20:36)
[2023-08-12] MEDS: divalproex sod 250mg ER (24-hour) tablet PO SCH (20:36)
--- NOTE | 2023-08-13 03:25 | NUR ---
Nursing Progress Note: Jerome Problem: Pt was transferred from ER overflow to [facility]. Pt is on a 5150 for DTS. Pt was having suicidal ideation with a plan to jump in front of a car. Pt reports he did in fact jump in front of a car but it stopped. Pt reports a previous suicide attempt 6 years ago where he cut his wrists. Pt is a chronic alcoholic. Pt has a history of withdrawal seizures. Pt reports that he was in the [facility] for 2 months but he came here for a mental health evaluation and then began drinking again and did not return. Pt has a history of Bipolar Disorder, patient reports he has Parkinson's though has no tremor, patient has a history of DVTs, chronic back pain, and alcoholic polyneuropathy. Interventions: Maintained a safe and supportive environment, provided clear and simple instructions, provided medication education and administration, provided active listening and positive encouragement, and maintained Q 15min safety checks. Response: Pt received in his room. Pt is resting quietly in bed. Pt is calm and cooperative with care. Pt describes his depression as severe, 10/10 and his anxiety as well. Pt doesnt feel the Ativan he was given helped him. Im anxious about finding housing for me. I only have Medicare and some of these places only take Medical. Its ridicules how it feel like I dont matter in the eyes of the government. Pt stated the was going to look into getting Medical set up for him. Pt denies SI/HI/AVH. Pt does not feel safe leaving here without placement. Pt is medication compliant and took PRN of Ativan 1mg. Pt did not want to use his Voltaren, Neosporin or Cortisone tonight. Monitor for safety. Plan: Pt. cannot contract for safety outside of the facility and states that he would "kill himself." If discharged at this time he could be a high risk for safety and re-hospitalization.
[2023-08-13 07:00] VITALS: RESP 16; O2SAT 96
[2023-08-13 08:00] VITALS: BP 121/75; PULSE 60; RESP 16; TEMP 97.9; O2SAT 96
[2023-08-13] MEDS: neomy sulf/bacitrac zn/polymixin b oint 14.2 gm tube TP SCH ×3 (08:00→20:41)
[2023-08-13] MEDS: DICLOFENAC SODIUM 1% gel 1 APPLIC APPLIC TP SCH ×2 (08:00→20:00)
[2023-08-13] MEDS: hydrocortisone 1% OINTMENT 30gm tube TP SCH ×3 (08:00→20:42)
[2023-08-13] MEDS: ARIPIPRAZOLE 10 MG TABLET PO SCH (08:28)
[2023-08-13] MEDS: nicotine 21mg patch - 24 hr TD SCH (08:29)
[2023-08-13] MEDS: dextroamphetamine/amphetamine 5mg tablet PO SCH ×2 (08:29→12:27)
[2023-08-13] MEDS: folic acid 1mg tablet PO SCH (08:30)
[2023-08-13] MEDS: ESCITALOPRAM 10 mg tablet 10 MG TABLET PO SCH (08:30)
[2023-08-13] MEDS: naproxen 500mg tablet PO SCH ×2 (08:31→17:46)
[2023-08-13] MEDS: naltrexone 50mg tablet PO SCH (08:32)
[2023-08-13] MEDS: thiamine 100mg tablet PO SCH (08:32)
[2023-08-13] MEDS: LORazepam 1 MG tablet PO PRN ×2 (08:32→20:40)
[2023-08-13] MEDS: multivitamins, therapeutics tablet PO SCH (08:32)
[2023-08-13] MEDS: gabapentin 100mg capsule PO SCH ×3 (08:32→20:41)
[2023-08-13] MEDS: lisinopril 2.5mg tablet PO SCH (08:44)
--- NOTE | 2023-08-13 11:42 | NUR ---
DISCHARGE PLANNING Jerome reported he has been calling [facility] daily and they do not have beds. He reported he is supposed to have an interview with [facility] today and they do have a bed. He reported worst case scenerio is that he gets paid on Aug 20 and he can stay at the [facility] for a month. He reported he has already spoken to the [facility] about renting a room. STEVEN Hwang
--- NOTE | 2023-08-13 15:34 | NUR ---
Nursing Progress Note: Problem : Pt was transferred from ER overflow to [facility]. Pt is on a 5150 for DTS. Pt was having suicidal ideation with a plan to jump in front of a car. Pt reports he did in fact jump in front of a car but it stopped. Pt reports a previous suicide attempt 6 years ago where he cut his wrists. Pt is a chronic alcoholic. Pt has a history of withdrawal seizures. Pt reports that he was in the [facility] for 2 months but he came here for a mental health evaluation and then began drinking again and did not return. Pt has a history of Bipolar Disorder, patient reports he has Parkinson's though has no tremor, patient has a history of DVTs, chronic back pain, and alcoholic polyneuropathy. Interventions : Maintained a safe and supportive environment, ensured contract for safety, provided clear and simple instructions, provided active listening and positive encouragement, encouraged participation on the unit, and maintained Q 15 min safety checks. Response : Received pt. sleeping in bed at the beginning of the shift, he was awoken to attend breakfast in the Group Room, and afterwards retreated back to bed as is his routine. Pt. continues to report anxiety in the morning and PRN Ativan was administered with effectiveness. Pt. isolated in bed throughout the shift napping intermittently, he presents as depressed with a blunted affect. 1:1 was completed later at bedside, pt. denies any current S/I, however states, "Not in here, but if I have to leave without housing." He does not indicate any current suicidal plan. Pt. then continues on to talk about his plans for discharge in a more hopeful manner. He reports he would really like to get into a rehabilitation program and is hopeful will get into [facility] or [facility]. If not, he plans to get a room at the [facility], but his funds have not come in yet. Pt. refused ordered Voltaren, Hydrocortisone, and Triple Antibiotic ointments this shift. Plan : Pt. continues to require a safe and supportive environment.
[2023-08-13 19:00] VITALS: RESP 16; O2SAT 95
[2023-08-13 20:00] VITALS: BP 105/75; PULSE 65; RESP 16; TEMP 97.8; O2SAT 95
[2023-08-13] MEDS: divalproex sod 250mg ER (24-hour) tablet PO SCH (20:41)
[2023-08-13] MEDS: QUEtiapine 25mg tablet PO SCH (20:41)
--- NOTE | 2023-08-14 03:13 | NUR ---
Nursing Progress Note: Jerome Problem: Pt was transferred from ER overflow to [facility]. Pt is on a 5150 for DTS. Pt was having suicidal ideation with a plan to jump in front of a car. Pt reports he did in fact jump in front of a car but it stopped. Pt reports a previous suicide attempt 6 years ago where he cut his wrists. Pt is a chronic alcoholic. Pt has a history of withdrawal seizures. Pt reports that he was in the [facility] for 2 months but he came here for a mental health evaluation and then began drinking again and did not return. Pt has a history of Bipolar Disorder, patient reports he has Parkinson's though has no tremor, patient has a history of DVTs, chronic back pain, and alcoholic polyneuropathy. Interventions: Maintained a safe and supportive environment, provided clear and simple instructions, provided medication education and administration, provided active listening and positive encouragement, and maintained Q 15min safety checks. Response: Pt received in the day room where he is watching the [employer]. Pt is calm and cooperative with care. Pt denies all mental health symptoms and is trying to get placement at a drug rehab facility. Pt has been calling places and stated he had a phone interview today. [facility] doesnt recall who he spoke to. Pt is compliant with his medications and speech writer applied pt.s ointments to his back. Skin is looking good. Pt declined the need for Voltaren. Pt had a PRN of Ativan 1mg for his anxiety. Pt still reports depression and stated, I just need to get out of here. Monitor for safety. Plan: Pt. cannot contract for safety outside of the facility and states that he would "kill himself." If discharged at this time he could be a high risk for safety and re-hospitalization.
[2023-08-14 07:00] VITALS: RESP 14; O2SAT 95
[2023-08-14] MEDS: hydrocortisone 1% OINTMENT 30gm tube TP SCH ×2 (08:00→20:00)
[2023-08-14] MEDS: DICLOFENAC SODIUM 1% gel 1 APPLIC APPLIC TP SCH ×2 (08:00→20:00)
[2023-08-14] MEDS: neomy sulf/bacitrac zn/polymixin b oint 14.2 gm tube TP SCH ×2 (08:00→20:00)
[2023-08-14 08:17] VITALS: BP 112/73; PULSE 71; RESP 14; TEMP 98.8; O2SAT 95
[2023-08-14] MEDS: multivitamins, therapeutics tablet PO SCH (08:30)
[2023-08-14] MEDS: ESCITALOPRAM 10 mg tablet 10 MG TABLET PO SCH (08:30)
[2023-08-14] MEDS: ARIPIPRAZOLE 10 MG TABLET PO SCH (08:30)
[2023-08-14] MEDS: folic acid 1mg tablet PO SCH (08:30)
[2023-08-14] MEDS: gabapentin 100mg capsule PO SCH ×3 (08:30→21:11)
[2023-08-14] MEDS: dextroamphetamine/amphetamine 5mg tablet PO SCH ×2 (08:30→13:52)
[2023-08-14] MEDS: thiamine 100mg tablet PO SCH (08:30)
[2023-08-14] MEDS: naltrexone 50mg tablet PO SCH (08:30)
[2023-08-14] MEDS: lisinopril 2.5mg tablet PO SCH (08:31)
[2023-08-14] MEDS: naproxen 500mg tablet PO SCH ×2 (08:31→18:02)
[2023-08-14] MEDS: LORazepam 1 MG tablet PO PRN ×2 (08:31→21:13)
[2023-08-14] MEDS: nicotine 21mg patch - 24 hr TD SCH (08:32)
--- NOTE | 2023-08-14 15:49 | NUR ---
Nursing Progress Note: Problem : Pt was transferred from ER overflow to [facility]. Pt is on a 5150 for DTS. Pt was having suicidal ideation with a plan to jump in front of a car. Pt reports he did in fact jump in front of a car but it stopped. Pt reports a previous suicide attempt 6 years ago where he cut his wrists. Pt is a chronic alcoholic. Pt has a history of withdrawal seizures. Pt reports that he was in the [facility] for 2 months but he came here for a mental health evaluation and then began drinking again and did not return. Pt has a history of Bipolar Disorder, patient reports he has Parkinson's though has no tremor, patient has a history of DVTs, chronic back pain, and alcoholic polyneuropathy. Interventions : Maintained a safe and supportive environment, ensured contract for safety, provided clear and simple instructions, provided active listening and positive encouragement, encouraged participation on the unit, and maintained Q 15 min safety checks. Response : Received pt. sleeping in bed at the beginning of the shift, he awoke to attend breakfast in the Group Room, and afterwards retreated back to bed as is his routine. Pt. again reported anxiety related to having "weird dreams," and PRN Ativan was administered with effectiveness. Pt. again isolated in bed throughout the shift napping intermittently, and reports fatigue due to restless sleep last night and not wanting to watch what others are watching on TV. His affect presents as constricted with brightening, and pt. again reports feeling more hopeful about his housing situation. He continues on to talk about looking forward to getting paid on August and his plan to get a motel when this happens if he is not yet accepted at a rehabilitation facility. Pt. states, "I feel better knowing at least I'll have a place to stay." Pt. again refused ordered Voltaren, Hydrocortisone, and Triple Antibiotic ointments this shift. Plan : Pt. continues to require a safe and supportive environment.
[2023-08-14 19:00] VITALS: RESP 14; O2SAT 97
[2023-08-14] MEDS: NICOTINE POLACRILEX 2 MG LOZENGE BC PRN (19:39)
[2023-08-14 20:00] VITALS: BP 121/71; PULSE 61; RESP 14; TEMP 98.3; O2SAT 97
[2023-08-14] MEDS: QUEtiapine 25mg tablet PO SCH (21:11)
[2023-08-14] MEDS: divalproex sod 250mg ER (24-hour) tablet PO SCH (21:11)
--- NOTE | 2023-08-15 01:40 | NUR ---
Nursing Progress Note: Problem : Pt was transferred from ER overflow to [facility]. Pt is on a 5150 for DTS. Pt was having suicidal ideation with a plan to jump in front of a car. Pt reports he did in fact jump in front of a car but it stopped. Pt reports a previous suicide attempt 6 years ago where he cut his wrists. Pt is a chronic alcoholic. Pt has a history of withdrawal seizures. Pt reports that he was in the [facility] for 2 months but he came here for a mental health evaluation and then began drinking again and did not return. Pt has a history of Bipolar Disorder, patient reports he has Parkinson's though has no tremor, patient has a history of DVTs, chronic back pain, and alcoholic polyneuropathy. Interventions : Maintained a safe and supportive environment, ensured contract for safety, provided clear and simple instructions, provided active listening and positive encouragement, encouraged participation on the unit, and maintained Q 15 min safety checks. Response : Pt. received sitting in the community room watching TV with peers. Pt. came out and asked for his PRN nicotine lozenge. He reports that his day was okay. Pt. denies SI/HI/AH/VH. Pt. participated in evening snack. Pt. took all oral medications but refused creams (hydrocortisone, neosporin and voltaren). PRN ativan provided this shift. After medication administration pt. laid in bed until falling asleep. Observed and appears sleeping without difficulty. Plan : Pt. continues to require a safe and supportive environment.
[2023-08-15 07:00] VITALS: RESP 18; O2SAT 93
[2023-08-15 08:00] VITALS: BP 109/69; PULSE 61; RESP 18; TEMP 97.6; O2SAT 93
[2023-08-15] MEDS: hydrocortisone 1% OINTMENT 30gm tube TP SCH ×2 (08:00→20:00)
[2023-08-15] MEDS: DICLOFENAC SODIUM 1% gel 1 APPLIC APPLIC TP SCH ×2 (08:00→20:00)
[2023-08-15] MEDS: neomy sulf/bacitrac zn/polymixin b oint 14.2 gm tube TP SCH ×2 (08:00→20:00)
[2023-08-15] MEDS: ESCITALOPRAM 10 mg tablet 10 MG TABLET PO SCH (08:28)
[2023-08-15] MEDS: folic acid 1mg tablet PO SCH (08:28)
[2023-08-15] MEDS: naproxen 500mg tablet PO SCH ×2 (08:28→17:52)
[2023-08-15] MEDS: ARIPIPRAZOLE 10 MG TABLET PO SCH (08:28)
[2023-08-15] MEDS: dextroamphetamine/amphetamine 5mg tablet PO SCH ×2 (08:28→13:41)
[2023-08-15] MEDS: thiamine 100mg tablet PO SCH (08:29)
[2023-08-15] MEDS: naltrexone 50mg tablet PO SCH (08:29)
[2023-08-15] MEDS: multivitamins, therapeutics tablet PO SCH (08:29)
[2023-08-15] MEDS: gabapentin 100mg capsule PO SCH ×3 (08:29→20:48)
[2023-08-15] MEDS: lisinopril 2.5mg tablet PO SCH (08:30)
[2023-08-15] MEDS: LORazepam 1 MG tablet PO PRN ×2 (08:30→21:40)
[2023-08-15] MEDS: nicotine 21mg patch - 24 hr TD SCH (08:30)
--- NOTE | 2023-08-15 12:07 | NUR ---
[facility] REFERRAL Completed and sent [facility] referral at Nelson's request as he now as straight [facility] with a $2000 share of cost. STEVEN Hwang
--- NOTE | 2023-08-15 14:32 | NUR ---
Nursing Progress Note: Problem : Pt was transferred from ER overflow to [facility]. Pt is on a 5150 for DTS. Pt was having suicidal ideation with a plan to jump in front of a car. Pt reports he did in fact jump in front of a car but it stopped. Pt reports a previous suicide attempt 6 years ago where he cut his wrists. Pt is a chronic alcoholic. Pt has a history of withdrawal seizures. Pt reports that he was in the [facility] for 2 months but he came here for a mental health evaluation and then began drinking again and did not return. Pt has a history of Bipolar Disorder, patient reports he has Parkinson's though has no tremor, patient has a history of DVTs, chronic back pain, and alcoholic polyneuropathy. Interventions : Maintained a safe and supportive environment, ensured contract for safety, provided clear and simple instructions, provided active listening and positive encouragement, encouraged participation on the unit, and maintained Q 15 min safety checks. Response : Received pt. sleeping in bed at the beginning of the shift, he was awoken for breakfast, however refused reporting he just wanted to sleep because his roommate kept him awake last night. Pt. continues to report anxiety upon awakening and PRN Ativan was administered with effectiveness. Pt. remains withdrawn and was observed to be napping much of the shift as is his routine, he does get up to attend meals and snacks. 1:1 was completed at bedside, pt. continues to present with a blunted affect with brightening. He denies any current S/I and states, "I'm pretty much over that." Pt. reports with some excitement that he was finally able to get onto [facility], however he is feeling discouraged because he will be required to pay a percentage of the cost. Pt. again refused ordered Voltaren, Hydrocortisone, and Triple Antibiotic ointments this shift. Plan : Pt. continues to require a safe and supportive environment.
--- NOTE | 2023-08-15 14:34 | NUR ---
No male beds at [facility] currently. STEVEN Hwang
[2023-08-15 19:00] VITALS: RESP 16; O2SAT 97
[2023-08-15] MEDS: NICOTINE POLACRILEX 2 MG LOZENGE BC PRN (19:33)
[2023-08-15 20:00] VITALS: BP 104/82; PULSE 67; RESP 16; TEMP 98.5; O2SAT 97
[2023-08-15] MEDS: QUEtiapine 25mg tablet PO SCH (20:48)
[2023-08-15] MEDS: divalproex sod 250mg ER (24-hour) tablet PO SCH (20:48)
--- NOTE | 2023-08-16 02:04 | NUR ---
Nursing Progress Note: Problem : Pt was transferred from ER overflow to [facility]. Pt is on a 5150 for DTS. Pt was having suicidal ideation with a plan to jump in front of a car. Pt reports he did in fact jump in front of a car but it stopped. Pt reports a previous suicide attempt 6 years ago where he cut his wrists. Pt is a chronic alcoholic. Pt has a history of withdrawal seizures. Pt reports that he was in the [facility] for 2 months but he came here for a mental health evaluation and then began drinking again and did not return. Pt has a history of Bipolar Disorder, patient reports he has Parkinson's though has no tremor, patient has a history of DVTs, chronic back pain, and alcoholic polyneuropathy. Interventions : Maintained a safe and supportive environment, ensured contract for safety, provided clear and simple instructions, provided active listening and positive encouragement, encouraged participation on the unit, and maintained Q 15 min safety checks. Response : Pt. sitting in community room with peers watching TV at change of shift. Pt. is calm and cooperative. Pt. participated in evening snack. He is medication compliant. PRN nicotine lozenge and ativan provided this shift. Pt. observed laying in bed talking on the phone. Denies SI/HI/AH/VH. Nicotine patch removed before bed. Observed and appears sleeping without difficulty. Plan : Pt. continues to require a safe and supportive environment.
[2023-08-16] MEDS: lisinopril 2.5mg tablet PO SCH (07:54)
[2023-08-16] MEDS: ESCITALOPRAM 10 mg tablet 10 MG TABLET PO SCH (07:55)
[2023-08-16] MEDS: naltrexone 50mg tablet PO SCH (07:55)
[2023-08-16] MEDS: dextroamphetamine/amphetamine 5mg tablet PO SCH ×2 (07:55→13:28)
[2023-08-16] MEDS: gabapentin 100mg capsule PO SCH ×3 (07:55→21:08)
[2023-08-16] MEDS: multivitamins, therapeutics tablet PO SCH (07:55)
[2023-08-16] MEDS: folic acid 1mg tablet PO SCH (07:55)
[2023-08-16] MEDS: ARIPIPRAZOLE 10 MG TABLET PO SCH (07:56)
[2023-08-16] MEDS: neomy sulf/bacitrac zn/polymixin b oint 14.2 gm tube TP SCH ×2 (07:58→20:00)
[2023-08-16] MEDS: DICLOFENAC SODIUM 1% gel 1 APPLIC APPLIC TP SCH ×2 (07:58→20:00)
[2023-08-16] MEDS: hydrocortisone 1% OINTMENT 30gm tube TP SCH ×2 (07:59→20:00)
[2023-08-16 08:00] VITALS: BP 135/68; PULSE 65; RESP 12; TEMP 97.5; O2SAT 95
[2023-08-16] MEDS: thiamine 100mg tablet PO SCH (08:01)
[2023-08-16] MEDS: nicotine 21mg patch - 24 hr TD SCH (08:01)
[2023-08-16] MEDS: naproxen 500mg tablet PO SCH ×2 (08:03→17:53)
--- NOTE | 2023-08-16 15:51 | NUR ---
Nursing Progress Note: Problem: Pt transferred from ER overflow to [facility]. Pt is on a 5150 for DTS. Pt was having suicidal ideation with a plan to jump in front of a car. Pt reports he did in fact jump in front of a car but it stopped. Pt reports a previous suicide attempt 6 years ago where he cut his wrists. Pt is a chronic alcoholic. Pt has a history of withdrawal seizures. Pt reports that he was in the [facility] for 2 months but he came here for a mental health evaluation and then began drinking again and did not return. Pt has a history of Bipolar Disorder, patient reports he has Parkinson's though has no tremor, patient has a history of DVTs, chronic back pain, and alcoholic polyneuropathy. Interventions: Provided 1:1 assessment with therapeutic communication and active listening; medication administration/education/monitoring; applied corticosteroid cream and antibiotic cream to upper back as prescribed; encouraged pt to shower, change linens and clothes; offered to provided time to shave; encouraged participation on the unit, monitored Q 15 min safety checks. Response: Pt had to be awoken for breakfast. He reports, "hard to sleep with him in here." Pt cooperative and receptive during med pass and assessment. He denies AH/VH. He reports, "depends where I go from here if I would be unsafe to leave here." He endorses needing to go to drug rehab for alcohol dependency. Pt slept in between meals and snacks. He isolates and is pleasant with people. Plan: Pt does not have a good safety plan. Medications are being titrated to an effective dose while maintaining a therapeutic environment to prevent decompensation and readmission.
[2023-08-16 19:00] VITALS: BP 112/65; PULSE 63; RESP 14; TEMP 98.6; O2SAT 97
[2023-08-16] MEDS: LORazepam 0.5 MG tablet PO PRN (21:08)
[2023-08-16] MEDS: divalproex sod 250mg ER (24-hour) tablet PO SCH (21:08)
[2023-08-16] MEDS: QUEtiapine 25mg tablet PO SCH (21:09)
--- NOTE | 2023-08-17 00:31 | NUR ---
Nursing Progress Note: Problem: Pt transferred from ER overflow to [facility]. Pt is on a 5150 for DTS. Pt was having suicidal ideation with a plan to jump in front of a car. Pt reports he did in fact jump in front of a car but it stopped. Pt reports a previous suicide attempt 6 years ago where he cut his wrists. Pt is a chronic alcoholic. Pt has a history of withdrawal seizures. Pt reports that he was in the [facility] for 2 months but he came here for a mental health evaluation and then began drinking again and did not return. Pt has a history of Bipolar Disorder, patient reports he has Parkinson's though has no tremor, patient has a history of DVTs, chronic back pain, and alcoholic polyneuropathy. Interventions: Provided 1:1 assessment with therapeutic communication and active listening; medication administration/education/monitoring; applied corticosteroid cream and antibiotic cream to upper back as prescribed; encouraged pt to shower, change linens and clothes; offered to provided time to shave; encouraged participation on the unit, monitored Q 15 min safety checks. Response: Pt. received watching TV w/peers in the community room at change of shift. Pt. reports anxiety 04/21; PRN ativan provided along w/night medications. Pt. somewhat upset about getting medications late. States " I have to stay up an hour after taking them, so they can kick in". Participated in evening snack. Observed and appears sleeping without difficulty. Plan: Pt does not have a good safety plan. Medications are being titrated to an effective dose while maintaining a therapeutic environment to prevent decompensation and readmission.
[2023-08-17 07:00] VITALS: RESP 18; O2SAT 98
[2023-08-17] MEDS: folic acid 1mg tablet PO SCH (07:45)
[2023-08-17] MEDS: gabapentin 100mg capsule PO SCH ×3 (07:45→21:16)
[2023-08-17] MEDS: multivitamins, therapeutics tablet PO SCH (07:45)
[2023-08-17] MEDS: dextroamphetamine/amphetamine 5mg tablet PO SCH ×2 (07:45→13:16)
[2023-08-17] MEDS: thiamine 100mg tablet PO SCH (07:45)
[2023-08-17] MEDS: naltrexone 50mg tablet PO SCH (07:45)
[2023-08-17] MEDS: ESCITALOPRAM 10 mg tablet 10 MG TABLET PO SCH (07:45)
[2023-08-17] MEDS: naproxen 500mg tablet PO SCH ×2 (07:46→16:47)
[2023-08-17] MEDS: ARIPIPRAZOLE 10 MG TABLET PO SCH (07:46)
[2023-08-17] MEDS: lisinopril 2.5mg tablet PO SCH (07:46)
[2023-08-17] MEDS: nicotine 21mg patch - 24 hr TD SCH (07:48)
[2023-08-17 08:00] VITALS: BP 127/79; PULSE 62; RESP 18; TEMP 97.4; O2SAT 98
[2023-08-17] MEDS: neomy sulf/bacitrac zn/polymixin b oint 14.2 gm tube TP SCH ×2 (08:00→20:00)
[2023-08-17] MEDS: hydrocortisone 1% OINTMENT 30gm tube TP SCH ×2 (08:00→20:00)
[2023-08-17] MEDS: DICLOFENAC SODIUM 1% gel 1 APPLIC APPLIC TP SCH ×2 (08:00→20:00)
[2023-08-17] MEDS: LORazepam 0.5 MG tablet PO PRN ×2 (13:25→21:16)
--- NOTE | 2023-08-17 16:57 | NUR ---
Nursing Progress Note: Problem: Pt was transferred from ER overflow to [facility]. Pt is on a 5150 for DTS. Pt was having suicidal ideation with a plan to jump in front of a car. Pt reports he did in fact jump in front of a car but it stopped. Pt reports a previous suicide attempt 6 years ago where he cut his wrists. Pt is a chronic alcoholic. Pt has a history of withdrawal seizures. Pt reports that he was in the [facility] for 2 months but he came here for a mental health evaluation and then began drinking again and did not return. Pt has a history of Bipolar Disorder, patient reports he has Parkinson's though has no tremor, patient has a history of DVTs, chronic back pain, and alcoholic polyneuropathy. Interventions: Maintained a safe and supportive environment, ensured contract for safety, provided clear and simple instructions, provided active listening and positive encouragement, encouraged participation on the unit and maintained Q 15 min safety checks. Response: Pt. was up for vitals and breakfast, compliant with meds, no noted behavioral issues. Had c/o anxiety R/T another pt. that has been yelling. PRN Ativan was administered. Asked him about his discharge plan he states, I am going to a sober living called [facility] and I can stay there as long as I need to, so basically I am moving in there. He has had no noted BX issues. He is friendly and cooperative with care. -Appearance: casually groomed -Eye contact: good -Mood: calm, depressed -Affect: congruent with mood -Speech: WNL -Thought Process: intact -A/V/H: denies -SI/HI: denies HI, cannot contract for safety outside of the facility -ADLs: independent with little prompting -Insight: fair-poor -Judgement: poor Plan: Pt. cannot contract for safety outside of the facility if discharged homeless. Cont. to need a structured environment to maintain stabilization until discharge to prevent decompensation and re-hospitalization.
[2023-08-17 19:00] VITALS: RESP 16; O2SAT 96
[2023-08-17 19:39] VITALS: BP 121/66; PULSE 61; RESP 16; TEMP 97.2; O2SAT 96
[2023-08-17] MEDS: NICOTINE POLACRILEX 2 MG LOZENGE BC PRN (21:15)
[2023-08-17] MEDS: QUEtiapine 25mg tablet PO SCH (21:15)
[2023-08-17] MEDS: divalproex sod 250mg ER (24-hour) tablet PO SCH (21:16)
--- NOTE | 2023-08-18 04:20 | NUR ---
Nursing Progress Note: TK Problem: Pt was transferred from ER overflow to [facility]. Pt is on a 5150 for DTS. Pt was having suicidal ideation with a plan to jump in front of a car. Pt reports he did in fact jump in front of a car but it stopped. Pt reports a previous suicide attempt 6 years ago where he cut his wrists. Pt is a chronic alcoholic. Pt has a history of withdrawal seizures. Pt reports that he was in the [facility] for 2 months but he came here for a mental health evaluation and then began drinking again and did not return. Pt has a history of Bipolar Disorder, patient reports he has Parkinson's though has no tremor, patient has a history of DVTs, chronic back pain, and alcoholic polyneuropathy. Interventions: Maintained a safe and supportive environment, ensured contract for safety, provided clear and simple instructions, provided active listening and positive encouragement, encouraged participation on the unit and maintained Q 15 min safety checks. Response: Pt received in his room. He mainly stood in his room all shift. He reported anxiety this shift and accessed Ativan x 1 with effectiveness. He stated he is nervous about his discharge to sober living. He continues to look forward to staying sober to have a life with his grandchildren. He took his medications as ordered and resumed sleeping. He accessed Nicotine lozenge x 1 this shift. Plan: Pt. cannot contract for safety outside of the facility if discharged homeless. Cont. to need a structured environment to maintain stabilization until discharge to prevent decompensation and re-hospitalization.
[2023-08-18 07:00] VITALS: RESP 16; O2SAT 96
[2023-08-18 08:00] VITALS: BP 114/68; PULSE 64; RESP 16; TEMP 98; O2SAT 96
[2023-08-18] MEDS: hydrocortisone 1% OINTMENT 30gm tube TP SCH ×2 (08:00→20:00)
[2023-08-18] MEDS: DICLOFENAC SODIUM 1% gel 1 APPLIC APPLIC TP SCH ×2 (08:00→20:00)
[2023-08-18] MEDS: neomy sulf/bacitrac zn/polymixin b oint 14.2 gm tube TP SCH ×2 (08:00→20:00)
[2023-08-18] MEDS: ARIPIPRAZOLE 10 MG TABLET PO SCH (08:00)
[2023-08-18] MEDS: ESCITALOPRAM 10 mg tablet 10 MG TABLET PO SCH (08:00)
[2023-08-18] MEDS: naltrexone 50mg tablet PO SCH (08:01)
[2023-08-18] MEDS: nicotine 21mg patch - 24 hr TD SCH (08:01)
[2023-08-18] MEDS: folic acid 1mg tablet PO SCH (08:01)
[2023-08-18] MEDS: lisinopril 2.5mg tablet PO SCH (08:01)
[2023-08-18] MEDS: dextroamphetamine/amphetamine 5mg tablet PO SCH ×2 (08:01→12:58)
[2023-08-18] MEDS: thiamine 100mg tablet PO SCH (08:02)
[2023-08-18] MEDS: naproxen 500mg tablet PO SCH ×2 (08:02→17:45)
[2023-08-18] MEDS: gabapentin 100mg capsule PO SCH ×3 (08:02→20:12)
[2023-08-18] MEDS: multivitamins, therapeutics tablet PO SCH (08:02)
--- NOTE | 2023-08-18 17:40 | NUR ---
Nursing Progress Note: Problem: Pt was transferred from ER overflow to [facility]. Pt is on a 5150 for DTS. Pt was having suicidal ideation with a plan to jump in front of a car. Pt reports he did in fact jump in front of a car but it stopped. Pt reports a previous suicide attempt 6 years ago where he cut his wrists. Pt is a chronic alcoholic. Pt has a history of withdrawal seizures. Pt reports that he was in the [facility] for 2 months but he came here for a mental health evaluation and then began drinking again and did not return. Pt has a history of Bipolar Disorder, patient reports he has Parkinson's though has no tremor, patient has a history of DVTs, chronic back pain, and alcoholic polyneuropathy. Interventions: Maintained a safe and supportive environment, ensured contract for safety, provided clear and simple instructions, provided active listening and positive encouragement, encouraged participation on the unit and maintained Q 15 min safety checks. Response: Pt. was up for vitals and breakfast, compliant with meds, no noted behavioral issues. Had c/o anxiety R/T clothing stating, I dont know where my clothes are, I gave them to the staff last night and just wondering if I am getting them back. When asked about DC, he states, I am going to the sober living place called [facility] on Friday. Asked if he felt ready, he stated, Yes, better than being on the streets, if I didnt get this place I wouldnt be able to leave. -Appearance: casually groomed -Eye contact: good -Mood: calm, depressed -Affect: congruent with mood -Speech: WNL -Thought Process: intact -A/V/H: denies -SI/HI: denies HI, cannot contract for safety outside of the facility -ADLs: independent with little prompting -Insight: fair-poor -Judgement: poor Plan: Pt. cannot contract for safety outside of the facility if discharged homeless. Cont. to need a structured environment to maintain stabilization until discharge to prevent decompensation and re-hospitalization.
[2023-08-18] MEDS: LORazepam 0.5 MG tablet PO PRN ×2 (17:48→21:31)
[2023-08-18 19:00] VITALS: BP 117/69; PULSE 63; RESP 16; TEMP 98.4; O2SAT 99
[2023-08-18] MEDS: NICOTINE POLACRILEX 2 MG LOZENGE BC PRN (19:01)
[2023-08-18] MEDS: QUEtiapine 25mg tablet PO SCH (20:12)
[2023-08-18] MEDS: divalproex sod 250mg ER (24-hour) tablet PO SCH (20:12)
--- NOTE | 2023-08-19 03:11 | NUR ---
Nursing Progress Note: TK Problem: Pt was transferred from ER overflow to [facility]. Pt is on a 5150 for DTS. Pt was having suicidal ideation with a plan to jump in front of a car. Pt reports he did in fact jump in front of a car but it stopped. Pt reports a previous suicide attempt 6 years ago where he cut his wrists. Pt is a chronic alcoholic. Pt has a history of withdrawal seizures. Pt reports that he was in the [facility] for 2 months but he came here for a mental health evaluation and then began drinking again and did not return. Pt has a history of Bipolar Disorder, patient reports he has Parkinson's though has no tremor, patient has a history of DVTs, chronic back pain, and alcoholic polyneuropathy. Interventions: Maintained a safe and supportive environment, ensured contract for safety, provided clear and simple instructions, provided active listening and positive encouragement, encouraged participation on the unit and maintained Q 15 min safety checks. Response: Pt received in day room. He engaged with peers and watched TV. He reported anxiety. He states I have anxiety all the time. He accessed Ativan x 1 with effectiveness. He took his medications as ordered. He accessed Nicotine lozenge x 1 this shift. He is appreciative of care provided. Plan: Pt. cannot contract for safety outside of the facility if discharged homeless. Cont. to need a structured environment to maintain stabilization until discharge to prevent decompensation and re-hospitalization.
[2023-08-19 07:00] VITALS: RESP 14; O2SAT 94
[2023-08-19] MEDS: dextroamphetamine/amphetamine 5mg tablet PO SCH ×2 (07:26→12:16)
[2023-08-19] MEDS: lisinopril 2.5mg tablet PO SCH (07:26)
[2023-08-19] MEDS: gabapentin 100mg capsule PO SCH ×3 (07:26→20:23)
[2023-08-19] MEDS: folic acid 1mg tablet PO SCH (07:26)
[2023-08-19] MEDS: multivitamins, therapeutics tablet PO SCH (07:26)
[2023-08-19] MEDS: ESCITALOPRAM 10 mg tablet 10 MG TABLET PO SCH (07:26)
[2023-08-19] MEDS: nicotine 21mg patch - 24 hr TD SCH (07:26)
[2023-08-19] MEDS: ARIPIPRAZOLE 10 MG TABLET PO SCH (07:26)
[2023-08-19] MEDS: thiamine 100mg tablet PO SCH (07:26)
[2023-08-19] MEDS: naproxen 500mg tablet PO SCH ×2 (07:35→17:19)
[2023-08-19] MEDS: neomy sulf/bacitrac zn/polymixin b oint 14.2 gm tube TP SCH ×2 (07:47→20:22)
[2023-08-19] MEDS: hydrocortisone 1% OINTMENT 30gm tube TP SCH ×2 (07:47→20:22)
[2023-08-19] MEDS: DICLOFENAC SODIUM 1% gel 1 APPLIC APPLIC TP SCH ×2 (07:48→20:00)
[2023-08-19 07:59] VITALS: BP 127/75; PULSE 64; RESP 14; TEMP 97.3; O2SAT 94
[2023-08-19] MEDS: naltrexone 50mg tablet PO SCH (12:55)
--- NOTE | 2023-08-19 13:40 | NUR ---
DISCHARGE PLAN Jerome is discharging tomorrow to [facility]. [facility] transit driver is going to pick him up at 11:30 AM to transport him to the house. He has follow up scheduled with [facility] and PCP. STEVEN Hawng
--- NOTE | 2023-08-19 17:22 | NUR ---
Nursing Progress Note: Problem: Pt was transferred from ER overflow to [facility]. Pt is on a 5150 for DTS. Pt was having suicidal ideation with a plan to jump in front of a car. Pt reports he did in fact jump in front of a car but it stopped. Pt reports a previous suicide attempt 6 years ago where he cut his wrists. Pt is a chronic alcoholic. Pt has a history of withdrawal seizures. Pt reports that he was in the [facility] for 2 months but he came here for a mental health evaluation and then began drinking again and did not return. Pt has a history of Bipolar Disorder, patient reports he has Parkinson's though has no tremor, patient has a history of DVTs, chronic back pain, and alcoholic polyneuropathy. Interventions: Maintained a safe and supportive environment, ensured contract for safety, provided clear and simple instructions, provided active listening and positive encouragement, encouraged participation on the unit and maintained Q 15 min safety checks. Response: Pt. remains unchanged in behaviors. Up for meals and vitals. Self isolates mostly to his room. Does not engage much with peers. Cont. to state if discharge to the streets he would not be sfe, feels safe while here and states that he will be going to [place] [facility]. At this time I do not see any notes nor has it been reported to me that it has been confirmed as a viable discharge plan. He is friendly, calm, med compliant and cooperative with care. -Appearance: disheveled, but refuses a shower today -Eye contact: good -Mood: calm -Affect: congruent with mood -Speech: WNL -Thought Process: intact -A/V/H: denies -SI/HI: denies HI, cannot contract for safety if discharged on the streets -ADLs: independent with little prompting -Insight: fair-poor -Judgement: poor Plan: Pt. cannot contract for safety outside of the facility if discharged homeless. Cont. to need a structured environment to maintain stabilization until discharge to prevent decompensation and re-hospitalization.
[2023-08-19 19:00] VITALS: RESP 18; O2SAT 98
[2023-08-19 19:33] VITALS: BP 122/68; PULSE 62; RESP 18; TEMP 97.1; O2SAT 98
[2023-08-19] MEDS: LORazepam 0.5 MG tablet PO PRN (20:22)
[2023-08-19] MEDS: QUEtiapine 25mg tablet PO SCH (20:23)
[2023-08-19] MEDS: divalproex sod 250mg ER (24-hour) tablet PO SCH (20:23)
[2023-08-19] MEDS ORDERED: NICO-687 TD (22:26)
[2023-08-19] MEDS ORDERED: NALT50TA PO (22:26)
[2023-08-19] MEDS ORDERED: ARIP20TA4 PO (22:26)
[2023-08-19] MEDS ORDERED: MULT-25 PO (22:26)
[2023-08-19] MEDS ORDERED: GABA-530 PO (22:26)
[2023-08-19] MEDS ORDERED: LISI2.5T14 PO (22:26)
[2023-08-19] MEDS ORDERED: DEXT10TA8 PO (22:26)
[2023-08-19] MEDS ORDERED: ESCI20TA39 PO (22:26)
--- NOTE | 2023-08-20 02:30 | NUR ---
Nursing Progress Note: Problem: Pt was transferred from ER overflow to [facility]. Pt is on a 5150 for DTS. Pt was having suicidal ideation with a plan to jump in front of a car. Pt reports he did in fact jump in front of a car but it stopped. Pt reports a previous suicide attempt 6 years ago where he cut his wrists. Pt is a chronic alcoholic. Pt has a history of withdrawal seizures. Pt reports that he was in the [facility] for 2 months but he came here for a mental health evaluation and then began drinking again and did not return. Pt has a history of Bipolar Disorder, patient reports he has Parkinson's though has no tremor, patient has a history of DVTs, chronic back pain, and alcoholic polyneuropathy. Interventions: Maintained a safe and supportive environment, ensured contract for safety, provided clear and simple instructions, provided active listening and positive encouragement, encouraged participation on the unit and maintained Q 15 min safety checks. Response: This nurse resumed care for patient at 1830. Patient observed in bed with headphones on lying supine. Patient denied all symptoms and shares discharge plan to sober living. Patient seems ready to go and excited to be getting on the right path. Patient received ABX and hydrocortisone for upper back/shoulder. Patient participated in HS snack and then returned to room for remainder of night. Plan: Pt. cannot contract for safety outside of the facility if discharged homeless. Cont. to need a structured environment to maintain stabilization until discharge to prevent decompensation and re-hospitalization.
[2023-08-20 07:00] VITALS: RESP 12; O2SAT 95
[2023-08-20 08:00] VITALS: BP 155/84; PULSE 61; RESP 12; TEMP 97.7; O2SAT 95
[2023-08-20] MEDS: nicotine 21mg patch - 24 hr TD SCH (08:00)
[2023-08-20 08:37] VITALS: BP_SYST 155; PULSE 61
[2023-08-20] MEDS: lisinopril 2.5mg tablet PO SCH (08:37)
[2023-08-20] MEDS: folic acid 1mg tablet PO SCH (08:38)
[2023-08-20] MEDS: multivitamins, therapeutics tablet PO SCH (08:39)
[2023-08-20] MEDS: gabapentin 100mg capsule PO SCH (08:40)
[2023-08-20] MEDS: thiamine 100mg tablet PO SCH (08:40)
[2023-08-20] MEDS: naproxen 500mg tablet PO SCH (08:40)
[2023-08-20] MEDS: ARIPIPRAZOLE 10 MG TABLET PO SCH (08:40)
[2023-08-20] MEDS: naltrexone 50mg tablet PO SCH (08:41)
[2023-08-20] MEDS: ESCITALOPRAM 10 mg tablet 10 MG TABLET PO SCH (08:41)
[2023-08-20] MEDS: dextroamphetamine/amphetamine 5mg tablet PO SCH (08:42)
[2023-08-20] MEDS: neomy sulf/bacitrac zn/polymixin b oint 14.2 gm tube TP SCH (08:45)
[2023-08-20] MEDS: hydrocortisone 1% OINTMENT 30gm tube TP SCH (08:45)
[2023-08-20] MEDS: DICLOFENAC SODIUM 1% gel 1 APPLIC APPLIC TP SCH (08:45)
--- NOTE | 2023-08-20 11:17 | NUR ---
Reassessment: PO intake continues to fluctuate with average 73% PO intake since 08/12 meeting 81% estimated energy needs and 100% estimated protein needs. Per air purifier servicer pt appears to be participating in snacks at times. No nutrition intervention warranted at this time given 100% PO intake of four most recent meals. LBM 08/19 per EMR. Will continue to follow and make recommendations as appropriate. Recommendations: 1) Continue regular diet 2) Routine Thiamine, Folic acid, MVI for EtOH hx per MD 3) Bowel care PRN 4) Weekly scaled weights Addendum: 08/20/23 at [address] Amended: Links added.
--- NOTE | 2023-08-20 12:05 | NUR ---
Nursing Discharge Note. Pt discharged from [facility] at 1130 and walked to lobby where [facility] driver guard was waiting to take him to the [facility] at the [facility]. Pt excited about the discharge plan and in good mood, denying SI/HI. He has been improving since admission and was in no acute physical or emotional distress. Pt did not want nicotine replacement and understood his discharge plan and instructions. Pt belongings and valuables inventoried and returned to him.
== END 2023-08-20 15:10 | disposition home or self-care (01) | DRG 885 ==
LOC: ER 20:39 → ED HOLD 07-29 21:35 → ADULT MH 07-30 14:57
PROVIDERS: ADMIT Psychiatry & Neurology Psychiatry; ATTEND Psychiatry & Neurology Psychiatry
DX: F33.2 Major depressive disorder, recurrent severe without psychotic features (principal); R45.851 Suicidal ideations; F13.20 Sedative, hypnotic or anxiolytic dependence, uncomplicated; F10.239 Alcohol dependence with withdrawal, unspecified; Z59.00 Homelessness unspecified; G89.29 Other chronic pain; J06.9 Acute upper respiratory infection, unspecified; M24.812 Other specific joint derangements of left shoulder, not elsewhere classified; M25.511 Pain in right shoulder; Z20.822 Contact with and (suspected) exposure to COVID-19; I10 Essential (primary) hypertension; E66.3 Overweight; F90.9 Attention-deficit hyperactivity disorder, unspecified type; G20.A1 Parkinson's disease without dyskinesia, without mention of fluctuations; F17.210 Nicotine dependence, cigarettes, uncomplicated; Z79.899 Other long term (current) drug therapy; Z83.3 Family history of diabetes mellitus; Z81.1 Family history of alcohol abuse and dependence; Z86.718 Personal history of other venous thrombosis and embolism; Z56.0 Unemployment, unspecified; Z90.49 Acquired absence of other specified parts of digestive tract; Z98.1 Arthrodesis status; Z68.30 Body mass index [BMI] 30.0-30.9, adult
CPT/HCPCS: 36415; 73221; 80053; 80061; 80305; 80320; 81001; 83036; 83735; 84132; 84443; 85025; 87081; 87811; 97110; 97116; 97161; 99285; A4314; G0378

== ENCOUNTER 2023-08-24 18:15 | Emergency (ER) | payer OTHER ==
[~2023-08-24] VITALS: Ht 175.3 cm; Wt 85.0 kg
[~2023-08-24 18:15] MED LIST changes: +ARIP20TA4 PO; +DEXT10TA8 PO; -DICL20GE TOP; +ESCI20TA39 PO; +LISI2.5T14 PO; -LORA-269 PO; +MULT-25 PO; +NALT50TA PO; -NAPR-56 PO; +NICO-687 TD; -ONDA4TAB12 PO
[2023-08-24 19:09] VITALS: BP 108/57; PULSE 62; TEMP 98; O2SAT 97
--- NOTE | 2023-08-24 19:36 | NUR ---
PT refusing vs and labs. CRN and provider notified.
--- NOTE | 2023-08-24 19:44 | NUR ---
PT ambulated out of room stated im leaving. PT states he called himself a cab. pt ambulated ELLI w/ steady gait. CRN and provider notified. Junaid notified.
[2023-08-24 20:01] VITALS: RESP 20
== END 2023-08-24 20:06 | disposition left against medical advice (07) ==
LOC: ER 18:15
DX: F10.10 Alcohol abuse, uncomplicated (principal); F31.9 Bipolar disorder, unspecified; Z79.899 Other long term (current) drug therapy; Y90.9 Presence of alcohol in blood, level not specified
CPT/HCPCS: 99283

== ENCOUNTER 2023-08-29 14:56 | Emergency (ER) | payer OTHER ==
[~2023-08-29] VITALS: Ht 175.3 cm; Wt 90.1 kg
[2023-08-29] MEDS ORDERED: HYDROcodone/acetaminophen 5mg/325mg tablet PO ONE (15:50)
--- NOTE | 2023-08-29 16:20 | NUR ---
MSE COMPLETED BY [facility].
[2023-08-29] MEDS ORDERED: IBUP-1984 PO (16:59)
[2023-08-29 17:38] VITALS: BP 121/82; PULSE 77; RESP 18; TEMP 98.3; O2SAT 97
--- NOTE | 2023-08-29 17:43 | NUR ---
PT DC AFTER MSE FROM [facility] IN [facility] ROOM OF ER.
== END 2023-08-29 17:43 | disposition home or self-care (01) ==
LOC: ER 14:56
DX: M54.6 Pain in thoracic spine (principal); F31.9 Bipolar disorder, unspecified; F10.20 Alcohol dependence, uncomplicated; R45.851 Suicidal ideations; Z79.899 Other long term (current) drug therapy; Z79.1 Long term (current) use of non-steroidal anti-inflammatories (NSAID); Y90.9 Presence of alcohol in blood, level not specified
CPT/HCPCS: 72074; 99283

== ENCOUNTER 2023-12-18 12:51 | Emergency (ER) | payer MEDICARE ==
[~2023-12-18] VITALS: Ht 175.3 cm; Wt 89.8 kg
[~2023-12-18 12:51] MED LIST changes: +ARIP20TA21 PO; -ARIP20TA4 PO; +ATOR40TA72 PO; -DEXT10TA8 PO; +DIVA-51 PO; +FENO145T25 PO; +HYDR-3686 PO; +NAPR-996 PO; +ONDA4TAB12 PO
[2023-12-18 17:04] LABS: BILIRUBIN,URINE NEGATIVE (Neg); CLARITY,URINE CLEAR (Clear); COLOR,URINE YELLOW (Yellow); GLUCOSE, URINE NEGATIVE (Neg); KETONES,URINE NEGATIVE (Neg); LEUKOCYTE ESTERASE ,URINE NEGATIVE (Neg); NITRITES, URINE NEGATIVE (Neg); OCCULT BLOOD,URINE NEGATIVE (Neg); PH,URINE 8.5 (4.8-8.0); PROTEIN,URINE NEGATIVE (Neg); UROBILINOGEN,URINE 0.2 E.U/dL (0.2-1.0)
[2023-12-18 17:12] LABS: UA COLLECTION TYPE CLN CATCH MIDSTREAM
[2023-12-18 17:14] LABS: URINE AMPHETAMINE SCREEN NEGATIVE (Neg); URINE BARBITUATE SCREEN NEGATIVE (Neg); URINE BENZODIAZEPINES SCREEN POSITIVE (Neg); URINE CANNABINOID SCREEN NEGATIVE (Neg); URINE COCAINE SCREEN NEGATIVE (Neg); URINE METHADONE SCREEN NEGATIVE (Neg); URINE OPIATE SCREEN NEGATIVE (Neg); URINE PHENCYCLIDINE SCREEN NEGATIVE (Neg)
[2023-12-18 17:25] LABS: BASOPHILS # (AUTO) 0.1 X10'3 (0-0.2); BASOPHILS % (AUTO) 1.4 % (0-1); EOSINOPHILS # (AUTO) 0.2 X10'3 (0-0.9); HEMATOCRIT 46.4 % (42.0-52.0); HEMOGLOBIN 15.6 g/dl (14.0-17.9); LYMPHOCYTES # (AUTO) 2.4 X10'3 (1.1-4.8); LYMPHOCYTES % (AUTO) 23.2 % (21-51); MEAN CORPUSCULAR HEMOGLOBIN 31.8 PG (27.0-31.0); MEAN CORPUSCULAR HGB CONC 33.6 g/dL (33.0-36.5); MEAN CORPUSCULAR VOLUME 94.6 FL (78-98); MEAN PLATELET VOLUME 8.8 FL (7.4-10.4); MONOCYTES # (AUTO) 0.9 X10'3 (0-0.9); MONOCYTES % (AUTO) 8.5 % (2-12); NEUTROPHILS # (AUTO) 6.6 X10'3 (1.8-7.7); NEUTROPHILS % (AUTO) 64.9 % (42-75); PLATELET COUNT 216 X10'3 (140-440); RED BLOOD COUNT 4.91 X10'6 (4.70-6.10); RED CELL DISTRIBUTION WIDTH 16.3 % (11.5-14.5); WHITE BLOOD COUNT 10.2 X10'3 (4.5-11.0)
[2023-12-18 17:49] LABS: ALBUMIN 2.8 G/DL (3.4-5.0); ANION GAP 44 (8-16); BLOOD UREA NITROGEN 15 MG/DL (7-18); BUN/CREATININE RATIO 13.6 (10.0-20.0); CALCIUM 7.4 MG/DL (8.5-10.1); CHLORIDE 92 MMOL/L (99-107); ETHANOL < 10 MG/DL (<10); GLUCOSE 114 MG/DL (70-104); POTASSIUM 3.3 MMOL/L (3.5-5.1); SALICYLATE 3.3 MG/DL (4.0-20.0); TOTAL CARBON DIOXIDE 23.3 MMOL/L (24-32); eCRCL 64 ML/MIN; eGFR 67 ML/MIN
[2023-12-18] MEDS: ibuprofen 200mg tablet PO ONE (18:06)
[2023-12-18 18:18] LABS: ACETAMINOPHEN < 2.0 UG/ML (10-30); SODIUM 159 MMOL/L (135-145)
[2023-12-18] MEDS ORDERED: NO HOME MEDS (21:14)
[2023-12-18] MEDS: QUEtiapine 25mg tablet PO ONE (21:27)
[2023-12-19] MEDS: naproxen 500mg tablet PO ONE (09:08)
[2023-12-19 11:01] VITALS: BP 114/62; PULSE 56; RESP 16; TEMP 98; O2SAT 96
== END 2023-12-19 11:26 ==
LOC: ER 12:51
DX: R45.851 Suicidal ideations (principal); Z20.822 Contact with and (suspected) exposure to COVID-19; M54.59 Other low back pain; F31.9 Bipolar disorder, unspecified; G89.29 Other chronic pain; M54.9 Dorsalgia, unspecified
CPT/HCPCS: 36415; 72131; 80048; 80305; 80320; 80329; 81003; 85025; 87811; 99285

== ENCOUNTER 2023-12-24 10:33 | Emergency (ER) | payer MEDICARE ==
[~2023-12-24] VITALS: Ht 167.6 cm; Wt 85.0 kg
[~2023-12-24 10:33] MED LIST changes: -ARIP20TA21 PO; -ATOR40TA72 PO; -DIVA-51 PO; -ESCI20TA39 PO; -FENO145T25 PO; -GABA-530 PO; -HYDR-3686 PO; -LISI2.5T14 PO; -MULT-25 PO; -NALT50TA PO; -NAPR-996 PO; -NICO-687 TD; +NO HOME MEDS; -ONDA4TAB12 PO
[2023-12-24 11:11] VITALS: BP 122/78; PULSE 79; RESP 16; TEMP 98; O2SAT 100
[2023-12-24] MEDS: dexamethasone sod phosphate 10mg/ml inj IM STA (11:43)
[2023-12-24] MEDS: ketorolac trometh inj. 60 MG/2 ML VIAL IM ONE (11:43)
[2023-12-24] MEDS: cyclobenzaprine 10mg tablet PO ONE (11:44)
[2023-12-24] MEDS: TETanus/Pertussis (Acell)/Diphther VAC/PF (Tdap-Adult) 0.5ml syringe IMVAC ONE (11:50)
[2023-12-24] MEDS: LIDOcaine 5% patch TP SCH (11:50)
== END 2023-12-24 14:45 | disposition home or self-care (01) ==
LOC: ER 10:34
DX: M54.50 Low back pain, unspecified (principal); F31.9 Bipolar disorder, unspecified; Z79.899 Other long term (current) drug therapy
CPT/HCPCS: 70450; 72131; 96372; 99285; J1100; J1885

== ENCOUNTER 2023-12-27 | Emergency (ER) | payer MEDICARE ==
[~2023-12-27] VITALS: Ht 175.3 cm; Wt 81.8 kg
[2023-12-27 00:50] LABS: BASOPHILS # (AUTO) 0.1 X10'3 (0-0.2); BASOPHILS % (AUTO) 1.1 % (0-1); EOSINOPHILS # (AUTO) 0.2 X10'3 (0-0.9); EOSINOPHILS % (AUTO) 2.4 % (0-6); HEMATOCRIT 46.4 % (42.0-52.0); HEMOGLOBIN 15.6 g/dl (14.0-17.9); LYMPHOCYTES # (AUTO) 3.5 X10'3 (1.1-4.8); LYMPHOCYTES % (AUTO) 37.6 % (21-51); MEAN CORPUSCULAR HEMOGLOBIN 31.2 PG (27.0-31.0); MEAN CORPUSCULAR HGB CONC 33.7 g/dL (33.0-36.5); MEAN CORPUSCULAR VOLUME 92.7 FL (78-98); MEAN PLATELET VOLUME 8.6 FL (7.4-10.4); MONOCYTES # (AUTO) 0.6 X10'3 (0-0.9); NEUTROPHILS # (AUTO) 4.8 X10'3 (1.8-7.7); NEUTROPHILS % (AUTO) 51.9 % (42-75); PLATELET COUNT 243 X10'3 (140-440); RED BLOOD COUNT 5.01 X10'6 (4.70-6.10); RED CELL DISTRIBUTION WIDTH 15.6 % (11.5-14.5); WHITE BLOOD COUNT 9.3 X10'3 (4.5-11.0)
[2023-12-27 01:04] LABS: ALANINE AMINOTRANSFERASE 26 U/L (12-78); ALBUMIN 3.6 G/DL (3.4-5.0); ALBUMIN/GLOBULIN RATIO 1.1 (1.1-1.5); ALKALINE PHOSPHATASE 76 IU/L (46-116); ANION GAP 16 (8-16); ASPARTATE AMINO TRANSFERASE 16 U/L (10-37); BILIRUBIN,TOTAL 0.9 MG/DL (0.1-1.0); BLOOD UREA NITROGEN 25 MG/DL (7-18); BUN/CREATININE RATIO 18.1 (10.0-20.0); CALCIUM 8.6 MG/DL (8.5-10.1); CHLORIDE 108 MMOL/L (99-107); CREATININE 1.38 MG/DL (0.60-1.10); GLUCOSE 87 MG/DL (70-104); POTASSIUM 3.2 MMOL/L (3.5-5.1); SODIUM 144 MMOL/L (135-145); TOTAL CARBON DIOXIDE 20.2 MMOL/L (24-32); TOTAL PROTEIN 6.9 G/DL (6.4-8.2); eCRCL 51 ML/MIN; eGFR 51 ML/MIN
[2023-12-27 01:13] LABS: ETHANOL < 10 MG/DL (<10); THYROID STIMULATING HORMONE 7.15 ulU/ml (0.34-4.50)
[2023-12-27 02:25] LABS: BILIRUBIN,URINE SMALL (Neg); CLARITY,URINE CLEAR (Clear); COLOR,URINE YELLOW (Yellow); GLUCOSE, URINE NEGATIVE (Neg); KETONES,URINE TRACE mg/dl (Neg); LEUKOCYTE ESTERASE ,URINE NEGATIVE (Neg); NITRITES, URINE NEGATIVE (Neg); OCCULT BLOOD,URINE NEGATIVE (Neg); PH,URINE 5.5 (4.8-8.0); PROTEIN,URINE NEGATIVE (Neg); UROBILINOGEN,URINE 0.2 E.U/dL (0.2-1.0)
[2023-12-27] MEDS: POTASSIUM BICARB 20meq eff tab 20 MEQ TABLET.EFF PO ONE (02:28)
[2023-12-27 02:30] LABS: UA COLLECTION TYPE NON-SPECIFIED
[2023-12-27 02:40] LABS: URINE AMPHETAMINE SCREEN NEGATIVE (Neg); URINE BARBITUATE SCREEN NEGATIVE (Neg); URINE BENZODIAZEPINES SCREEN POSITIVE (Neg); URINE CANNABINOID SCREEN NEGATIVE (Neg); URINE COCAINE SCREEN NEGATIVE (Neg); URINE METHADONE SCREEN NEGATIVE (Neg); URINE OPIATE SCREEN NEGATIVE (Neg); URINE PHENCYCLIDINE SCREEN NEGATIVE (Neg)
[2023-12-27] MEDS: acetaminophen 325mg tablet PO STA (02:47)
[2023-12-27] MEDS: acetaminophen 325mg tablet PO ONE (19:28)
[2023-12-27] MEDS: Melatonin 3mg tablet PO SCH (20:15)
[2023-12-28] MEDS: acetaminophen 325mg tablet PO ONE ×2 (01:31→09:21)
[2023-12-28 09:31] VITALS: BP 129/72; PULSE 68; RESP 20; TEMP 97.5; O2SAT 100
== END 2023-12-28 09:25 | disposition home or self-care (01) ==
LOC: ER
DX: F31.9 Bipolar disorder, unspecified (principal); E87.6 Hypokalemia; Z20.822 Contact with and (suspected) exposure to COVID-19; Z86.718 Personal history of other venous thrombosis and embolism; F10.10 Alcohol abuse, uncomplicated
CPT/HCPCS: 36415; 80053; 80305; 80320; 81003; 84443; 85025; 87811; 99285

== ENCOUNTER 2023-12-28 12:03 | Emergency (ER) | payer MEDICARE ==
[~2023-12-28] VITALS: Ht 175.3 cm; Wt 81.8 kg
[2023-12-28 12:07] VITALS: BP 145/81; PULSE 64; RESP 16; TEMP 98.6; O2SAT 100
[2023-12-28] MEDS ORDERED: ketorolac trometh inj. 60 MG/2 ML VIAL IM ONE (17:00)
[2023-12-28] MEDS: orphenadrine citrate 60mg/2ml inj. IM ONE (17:45)
[2023-12-28] MEDS: ketorolac tromethamine 15mg/ml inj. IM ONE (17:45)
== END 2023-12-28 17:48 | disposition home or self-care (01) ==
LOC: ER 12:04
DX: M54.50 Low back pain, unspecified (principal); F31.9 Bipolar disorder, unspecified
CPT/HCPCS: 96372; 99284; J1885; J2360

== ENCOUNTER 2023-12-29 04:49 | Emergency (ER) | payer MEDICARE ==
[~2023-12-29] VITALS: Ht 175.3 cm; Wt 81.0 kg
[2023-12-29 04:55] VITALS: BP 148/63; PULSE 60; RESP 16; O2SAT 100
[2023-12-29] MEDS: acetaminophen 325mg tablet PO STA (08:02)
[2023-12-29 08:03] VITALS: TEMP 98.6
[2023-12-29] MEDS: ibuprofen tablet 400 MG TABLET PO ONE (08:03)
== END 2023-12-29 08:05 | disposition home or self-care (01) ==
LOC: ER 04:50
DX: G89.29 Other chronic pain (principal); M54.9 Dorsalgia, unspecified; F31.9 Bipolar disorder, unspecified; F17.200 Nicotine dependence, unspecified, uncomplicated
CPT/HCPCS: 99281

== ENCOUNTER 2024-01-01 14:48 | Emergency (ER) | payer MEDICARE | END 2024-01-01 15:16 | disposition left against medical advice (07) | LOC: ER 14:48 | DX: F10.20 Alcohol dependence, uncomplicated (principal); Z53.21 Procedure and treatment not carried out due to patient leaving prior to being seen by health care provider | CPT/HCPCS: 99281 ==

== ENCOUNTER 2024-01-03 10:44 | Emergency (ER) | payer MEDICARE ==
[~2024-01-03] VITALS: Ht 175.3 cm; Wt 81.8 kg
[2024-01-03 12:13] LABS: BILIRUBIN,URINE MODERATE (Neg); CLARITY,URINE SLIGHTLY CLOUDY (Clear); COLOR,URINE YELLOW (Yellow); GLUCOSE, URINE NEGATIVE (Neg); KETONES,URINE 40 mg/dl (Neg); LEUKOCYTE ESTERASE ,URINE NEGATIVE (Neg); NITRITES, URINE NEGATIVE (Neg); OCCULT BLOOD,URINE NEGATIVE (Neg); PROTEIN,URINE NEGATIVE (Neg)
[2024-01-03 12:16] LABS: UA COLLECTION TYPE CLN CATCH MIDSTREAM
[2024-01-03 12:18] LABS: BACTERIA,URINE FEW /HPF (Neg); MUCUS STRANDS MODERATE /LPF (Neg); RBC,URINE 0-2 /HPF (0-2); SQUAMOUS EPITHELIAL CELL,UR FEW /LPF (FEW); WBC,URINE 0-4 /HPF (0-4)
[2024-01-03 12:41] LABS: URINE AMPHETAMINE SCREEN NEGATIVE (Neg); URINE BARBITUATE SCREEN NEGATIVE (Neg); URINE BENZODIAZEPINES SCREEN POSITIVE (Neg); URINE CANNABINOID SCREEN NEGATIVE (Neg); URINE COCAINE SCREEN NEGATIVE (Neg); URINE METHADONE SCREEN NEGATIVE (Neg); URINE OPIATE SCREEN NEGATIVE (Neg); URINE PHENCYCLIDINE SCREEN NEGATIVE (Neg)
[2024-01-03 16:06] LABS: BASOPHILS # (AUTO) 0.1 X10'3 (0-0.2); BASOPHILS % (AUTO) 0.6 % (0-1); EOSINOPHILS # (AUTO) 0.1 X10'3 (0-0.9); EOSINOPHILS % (AUTO) 1.5 % (0-6); HEMATOCRIT 45.5 % (42.0-52.0); HEMOGLOBIN 15.6 g/dl (14.0-17.9); LYMPHOCYTES # (AUTO) 2.2 X10'3 (1.1-4.8); LYMPHOCYTES % (AUTO) 26.2 % (21-51); MEAN CORPUSCULAR HEMOGLOBIN 31.7 PG (27.0-31.0); MEAN CORPUSCULAR HGB CONC 34.2 g/dL (33.0-36.5); MEAN CORPUSCULAR VOLUME 92.5 FL (78-98); MEAN PLATELET VOLUME 8.8 FL (7.4-10.4); MONOCYTES # (AUTO) 1.1 X10'3 (0-0.9); NEUTROPHILS # (AUTO) 4.9 X10'3 (1.8-7.7); NEUTROPHILS % (AUTO) 58.7 % (42-75); PLATELET COUNT 191 X10'3 (140-440); RED BLOOD COUNT 4.92 X10'6 (4.70-6.10); RED CELL DISTRIBUTION WIDTH 15.2 % (11.5-14.5); WHITE BLOOD COUNT 8.4 X10'3 (4.5-11.0)
[2024-01-03 16:15] LABS: ANION GAP 13 (8-16); BLOOD UREA NITROGEN 17 MG/DL (7-18); CALCIUM 8.6 MG/DL (8.5-10.1); CHLORIDE 104 MMOL/L (99-107); CREATININE 1.06 MG/DL (0.60-1.10); ETHANOL < 10 MG/DL (<10); GLUCOSE 127 MG/DL (70-104); POTASSIUM 3.3 MMOL/L (3.5-5.1); SODIUM 140 MMOL/L (135-145); TOTAL CARBON DIOXIDE 22.7 MMOL/L (24-32); eCRCL 67 ML/MIN; eGFR 69 ML/MIN
[2024-01-03] MEDS: naproxen 500mg tablet PO STA (16:35)
[2024-01-03] MEDS: potassium Cl 20 mEq SR tablet PO STA (17:09)
[2024-01-03 18:52] VITALS: BP 138/66; PULSE 70; TEMP 97.3; O2SAT 96
[2024-01-03] MEDS: naproxen 500mg tablet PO ONE (23:27)
[2024-01-03] MEDS: Melatonin 3mg tablet PO ONE (23:27)
[2024-01-04 09:41] VITALS: RESP 18
== END 2024-01-04 09:52 | disposition home or self-care (01) ==
LOC: ER 10:45
DX: Z76.5 Malingerer [conscious simulation] (principal); Z20.822 Contact with and (suspected) exposure to COVID-19; F31.9 Bipolar disorder, unspecified; F17.200 Nicotine dependence, unspecified, uncomplicated
CPT/HCPCS: 36415; 80048; 80305; 80320; 81001; 85025; 87811; 99284

== ENCOUNTER 2024-06-25 21:08 | Emergency (ER) | payer BC, MEDICARE ==
[~2024-06-25] VITALS: Ht 170.2 cm; Wt 72.7 kg
[2024-06-25 21:09] VITALS: BP 117/94; PULSE 89; RESP 16; TEMP 98; O2SAT 97
== END 2024-06-25 21:44 ==
LOC: ER 21:09
DX: Z02.89 Encounter for other administrative examinations (principal); R07.9 Chest pain, unspecified; M79.602 Pain in left arm; M79.601 Pain in right arm; G20.A1 Parkinson's disease without dyskinesia, without mention of fluctuations; G89.29 Other chronic pain; M54.9 Dorsalgia, unspecified; F31.9 Bipolar disorder, unspecified; Z86.718 Personal history of other venous thrombosis and embolism; Z56.0 Unemployment, unspecified; Z59.00 Homelessness unspecified
CPT/HCPCS: 99283

== ENCOUNTER 2024-07-11 20:49 | Emergency (ER) | payer BC ==
[~2024-07-11] VITALS: Ht 170.2 cm; Wt 73.0 kg
[2024-07-11 21:08] VITALS: BP 130/77; PULSE 56; TEMP 98.1; O2SAT 95
[2024-07-11 21:14] LABS: BASOPHILS # (AUTO) 0.1 X10'3 (0-0.2); BASOPHILS % (AUTO) 1.5 % (0-1); EOSINOPHILS # (AUTO) 0.2 X10'3 (0-0.9); EOSINOPHILS % (AUTO) 2.3 % (0-6); HEMATOCRIT 49.9 % (42.0-52.0); HEMOGLOBIN 16.7 g/dl (14.0-17.9); LYMPHOCYTES # (AUTO) 4.3 X10'3 (1.1-4.8); LYMPHOCYTES % (AUTO) 44.4 % (21-51); MEAN CORPUSCULAR HEMOGLOBIN 32.1 PG (27.0-31.0); MEAN CORPUSCULAR HGB CONC 33.4 g/dL (33.0-36.5); MEAN CORPUSCULAR VOLUME 95.9 FL (78-98); MEAN PLATELET VOLUME 8.5 FL (7.4-10.4); MONOCYTES # (AUTO) 0.7 X10'3 (0-0.9); MONOCYTES % (AUTO) 7.5 % (2-12); NEUTROPHILS # (AUTO) 4.3 X10'3 (1.8-7.7); NEUTROPHILS % (AUTO) 44.3 % (42-75); PLATELET COUNT 188 X10'3 (140-440); RED CELL DISTRIBUTION WIDTH 14.3 % (11.5-14.5); WHITE BLOOD COUNT 9.7 X10'3 (4.5-11.0)
[2024-07-11 21:19] LABS: BILIRUBIN,URINE NEGATIVE (Neg); CLARITY,URINE CLEAR (Clear); COLOR,URINE STRAW (Yellow); GLUCOSE, URINE NEGATIVE (Neg); KETONES,URINE NEGATIVE (Neg); LEUKOCYTE ESTERASE ,URINE NEGATIVE (Neg); NITRITES, URINE NEGATIVE (Neg); OCCULT BLOOD,URINE NEGATIVE (Neg); PROTEIN,URINE NEGATIVE (Neg); UROBILINOGEN,URINE 0.2 E.U/dL (0.2-1.0)
[2024-07-11] MEDS: LORazepam 1 MG tablet PO ONE (21:21)
[2024-07-11 21:23] LABS: UA COLLECTION TYPE URINAL
[2024-07-11 21:29] LABS: ALANINE AMINOTRANSFERASE 21 U/L (12-78); ALBUMIN 3.5 G/DL (3.4-5.0); ALKALINE PHOSPHATASE 112 IU/L (46-116); ANION GAP 11 (8-16); ASPARTATE AMINO TRANSFERASE 18 U/L (10-37); BILIRUBIN,TOTAL 0.8 MG/DL (0.1-1.0); BLOOD UREA NITROGEN 7 MG/DL (7-18); CALCIUM 8.6 MG/DL (8.5-10.1); CHLORIDE 103 MMOL/L (99-107); CREATININE 1.17 MG/DL (0.60-1.10); GLUCOSE 79 MG/DL (70-104); POTASSIUM 3.4 MMOL/L (3.5-5.1); SODIUM 141 MMOL/L (135-145); TOTAL CARBON DIOXIDE 27.1 MMOL/L (24-32); TOTAL PROTEIN 7.1 G/DL (6.4-8.2); eCRCL 57 ML/MIN; eGFR 62 ML/MIN
[2024-07-11 21:30] LABS: URINE AMPHETAMINE SCREEN NEGATIVE (Neg); URINE BARBITUATE SCREEN NEGATIVE (Neg); URINE BENZODIAZEPINES SCREEN POSITIVE (Neg); URINE CANNABINOID SCREEN NEGATIVE (Neg); URINE COCAINE SCREEN NEGATIVE (Neg); URINE METHADONE SCREEN NEGATIVE (Neg); URINE OPIATE SCREEN NEGATIVE (Neg); URINE PHENCYCLIDINE SCREEN NEGATIVE (Neg)
[2024-07-11 21:37] LABS: ETHANOL 184 MG/DL (<10); THYROID STIMULATING HORMONE 3.57 ulU/ml (0.34-4.50)
[2024-07-12 08:41] VITALS: RESP 16
== END 2024-07-12 10:12 | disposition home or self-care (01) ==
LOC: ER 20:50
DX: R45.851 Suicidal ideations (principal); F10.129 Alcohol abuse with intoxication, unspecified; G20.A1 Parkinson's disease without dyskinesia, without mention of fluctuations; G89.29 Other chronic pain; M54.9 Dorsalgia, unspecified; F31.9 Bipolar disorder, unspecified; Z86.718 Personal history of other venous thrombosis and embolism; Z59.00 Homelessness unspecified; Z56.0 Unemployment, unspecified; Z20.822 Contact with and (suspected) exposure to COVID-19
CPT/HCPCS: 36415; 80053; 80305; 80320; 81003; 84443; 85025; 87811; 99285